=== PATIENT | female | born 1995 | race Caucasian/White ===

== ENCOUNTER 2024-03-02 10:26 | Outpatient (CLI) | payer BC, SELFPAY ==
[2024-03-02 10:59] LABS: Alanine Aminotransferase 12 U/L (6-35); Albumin Level 4.5 g/dL (3.5-5.1); Alkaline Phosphatase 59 U/L (38-126); Anion Gap 6 mmol/L (4-12); Aspartate Amino Transferase 21 U/L (14-36); Bilirubin,Total 0.3 mg/dL (0.2-1.3); Blood Urea Nitrogen 9 mg/dL (7-17); CRP < 0.5 mg/dL (<1.0); Calcium 9.2 mg/dL (8.4-10.2); Carbon Dioxide 30 mmol/L (22-30); Chloride 103 mmol/L (98-107); Estimated Glomerular Filt Rate > 60; Glucose 94 mg/dL (65-110); Potassium 4.3 mmol/L (3.4-5.0); Sodium 139 mmol/L (137-145)
[2024-03-02 11:31] LABS: Iron 64 ug/dL (37-170)
[2024-03-02 11:41] LABS: Percent Iron Saturation 25 % (20-50)
[2024-03-02 12:02] LABS: Folic Acid > 20.0 ng/mL (2.76->20)
[2024-03-02 16:04] LABS: Hepatitis B Surface Antigen Negative (Negative)
[2024-03-02 16:10] LABS: HAV RESULT Negative (Negative); Hepatitis B Core IgM Result Negative (Negative)
[2024-03-02 16:22] LABS: Hepatitis B Surface Anti Res Negative; Hepatitis C Virus Antibody Negative (Negative)
[2024-03-04 01:58] LABS: Hepatitis A Antibody Total REACTIVE (NON-REACTIVE)
[2024-03-05 12:24] LABS: NIL 0.02 IU/mL; Quantiferon TB Plus, 1T NEGATIVE (NEGATIVE)
== END 2024-03-02 10:27 | disposition home or self-care (01) ==
LOC: ANHLAB 10:28
PROVIDERS: PCP Family Medicine; Visit Provider Nurse Practitioner
DX: K50.819 Crohn's disease of both small and large intestine with unspecified complications (principal); K52.9 Noninfective gastroenteritis and colitis, unspecified; R11.0 Nausea; R19.00 Intra-abdominal and pelvic swelling, mass and lump, unspecified site
CPT/HCPCS: 36415; 80053; 80074; 82607; 82746; 83540; 83550; 86140; 86480; 86706; 86708

== ENCOUNTER 2024-03-04 11:40 | Outpatient (CLI) | payer BC, SELFPAY ==
[2024-03-04 13:16] LABS: Erythrocyte Sedimentation Rate 12 mm/hr (0-20)
[2024-03-05 16:13] LABS: Hepatitis B Core Ab Total NON-REACTIVE (NON-REACTIVE)
[2024-03-08 06:48] LABS: Immunoglobulin A 179 mg/dL (47-310); TTG IGA AB <1.0 U/mL
[2024-03-08 10:59] LABS: Vitamin D 1,25 (OH)2 Total 49 pg/mL (18-72); Vitamin D2 1,25 (OH)2 <8 pg/mL; Vitamin D3 1,25 (OH)2 49 pg/mL
[2024-03-10 18:24] LABS: Calprotectin, Stool 323 mcg/g
== END 2024-03-04 11:41 | disposition home or self-care (01) ==
LOC: ANHLAB 11:41
PROVIDERS: PCP Family Medicine; Visit Provider Nurse Practitioner
DX: K50.819 Crohn's disease of both small and large intestine with unspecified complications (principal); K52.9 Noninfective gastroenteritis and colitis, unspecified; R10.9 Unspecified abdominal pain; R11.0 Nausea; R19.00 Intra-abdominal and pelvic swelling, mass and lump, unspecified site
CPT/HCPCS: 36415; 82652; 82728; 82784; 83993; 85652; 86364; 86704; 87045; 87427; 87449

== ENCOUNTER 2024-03-15 08:17 | Outpatient (CLI) | payer BC, SELFPAY ==
--- NOTE | ~2024-03-15 | XR_ITS ---
EXAMINATION: XR UGI w small bowel DATE: 03/15/2024 10:18 INDICATION: Abdominal pain. Crohn disease. TECHNIQUE: The patient drank thick barium, gas-producing crystals, and thin barium. Fluoroscopy of th e esophagus and small bowel was performed. Fluoroscopy exposure time was 1.5 minutes. Radiographs of the abdomen were obtained. The total number of images was 277. COMPARISON: None. FINDINGS: ESOPHAGRAM: There is no mass or stricture of the esophagus. Esophageal motility is normal. There is no hiatal her juan. There was no gastroesophageal reflux with provocative maneuvers. SMALL BOWEL SERIES: The small bowel shows a normal folding pattern. Specifically, the terminal ileum is normal. Transit t julián to the colon was 30 minutes. IMPRESSION: 1. Normal esophagram. 2. Normal small bowel series. Reviewed, dictated and finalized at location A.
== END 2024-03-15 08:18 | disposition home or self-care (01) ==
LOC: ANHIMG 08:19
PROVIDERS: PCP Family Medicine; Visit Provider Nurse Practitioner
DX: K52.9 Noninfective gastroenteritis and colitis, unspecified (principal); R10.9 Unspecified abdominal pain; K56.699 Other intestinal obstruction unspecified as to partial versus complete obstruction
CPT/HCPCS: 74240; 74248

== ENCOUNTER 2024-12-26 11:36 | Outpatient (CLI) | payer BC, SELFPAY ==
[2024-12-26 12:37] LABS: Hematocrit 34.8 % (37.0-47.0); Hemoglobin 11.4 g/dL (12.0-15.0); Mean Corpuscular HGB Conc 32.8 g/dl (32-36); Mean Corpuscular Hemoglobin 29.8 pg (26-34); Mean Corpuscular Volume 91.1 fl (80-100); Mean Platelet Volume 9.7 fl (7.4-10.4); Platelet Count Result 226 k/mm3 (150-375); Red Blood Count 3.82 M/mm3 (4.2-5.4); White Blood Count 6.4 K/mm3 (4.5-10.0)
[2024-12-26 12:44] LABS: Alanine Aminotransferase 20 U/L (6-35); Albumin Level 4.4 g/dL (3.5-5.1); Alkaline Phosphatase 73 U/L (38-126); Anion Gap 6 mmol/L (4-12); Aspartate Amino Transferase 29 U/L (14-36); Bilirubin,Total 0.3 mg/dL (0.2-1.3); Blood Urea Nitrogen 15 mg/dL (7-17); CRP < 0.5 mg/dL (<1.0); Calcium 8.9 mg/dL (8.4-10.2); Carbon Dioxide 29 mmol/L (22-30); Chloride 100 mmol/L (98-107); Estimated Glomerular Filt Rate > 60; Glucose 107 mg/dL (65-110); Potassium 4.1 mmol/L (3.4-5.0); Sodium 135 mmol/L (137-145)
[2024-12-26 12:46] LABS: Iron 60 ug/dL (37-170)
[2024-12-26 12:55] LABS: Percent Iron Saturation 25 % (20-50)
[2024-12-26 13:21] LABS: Hepatitis B Surface Antigen Negative (Negative)
--- OUTSIDE RECORDS SUMMARY | 2024-12-26 13:35 | XMS_ITS | Data Portability ---
Author Organization [facility] JESUSJordan Address [address] [place] [address] Assessment No assessment recorded. Plan of Treatment Reminders Order Date Submit Date Provider Last Modified By Organization Details Last Modified Time Details Appointments None recorded. Lab HbA1c (hemoglob in A1c), blood 2015 016 asavala [facility], [address], [address], [place], [address], 6 13:07:40 glucose, fasting, QN, serum or plasma 2015 016 tdehne [facility], [address], [address], [place], [address], 7 19:47:23 HbA1c (hemoglob in A1c), blood 2014 015 asavala [facility], [address], [address], [place], [address], 5 10:37:26 glucose, fasting, QN, serum or plasma 2014 015 asavala [facility], [address], [place], [address], 5 10:37:26 inflammat ory bowel disease Ab panel, serum 2014 015 THOR [facility], [address], [place], [address], 11:13:26 test, urine 2014 THOR In-Office Order, Internal Use Only DO Not Attach Compendium DO Not Attach Compendium, Do Not Delete/merge, [id number] 17:43:18 H pylori urea breath test, co2 infrared 2014 [facility]OR [facility], [address], [address], [place], [address], 11:13:28 hepatitis C Ab, serum 2014 [facility], [address], [address], [place], [address], 11:13:27 HIV (1+O+2) Ab, serum 2014 [facility]OR [facility], [address], [address], [place], [address], 11:13:26 CMP, serum or plasma 2014 [facility]OR [facility], [address], [address], [place], [address], 11:13:24 CBC w/ auto diff 2014 THOR [facility], [address], [address], [place], [address], 11:13:23 lipid panel, serum 2014 THOR [facility]IL[facility]OMA, [address], [address], [place], [address], 11:13:22 urinalysi s, complete 2014 015 [facility]OR [facility], [address], [address], [place], [address], 5 11:13:25 urinalysi s, dipstick 2014 015 horace In-Office Order, Internal Use Only DO Not Attach Compendium DO Not Attach Compendium, Do Not Delete/merge, [id number] 5 14:30:36 bacterial vaginosis + vaginitis panel, vaginal 2014 015 [facility]OR [facility], [address] [facility] [address], [place], [address], 5 09:52:17 HSV (1+2) DNA, qual, PCR, unspecifi ed specimen 2014 015 [facility], [address], [place], [address], 5 09:52:18 culture, vaginal/r ectal, streptoco ccus group B 2014 015 [facility], [address], [place], [address], 5 09:52:18 test, urine 2014 015 horace In-Office Order, Internal Use Only DO Not Attach Compendium DO Not Attach Compendium, Do Not Delete/merge, [id number] 5 14:30:36 Referral None recorded. Procedures None recorded. Surgeries None recorded. Imaging ultrasoun d, rios er - Pain 2014 015 THOR Not available 5 14:39:49 Medication Orders Nexplanon 68 mg subdermal implant 2014 015 [id number], [address] [facility] [address], [place], [place], [id number], 5 14:59:16 Patient TargetsNo targets recorded. Patient Instructions Encounter Date Encounter Id Patient Instructions Last Modified By Organization Details Last Modified Time 07/19/2015 [id number] abdominal pain: care instructions asavala Not available 07/19/2015 10:37:38 Labs were discussed in detail and clear instructions were given to the patient regarding the plan oajao Not available 07/19/2015 10:22:44 Reason for Referral None Reported. Results Created Date Observation Date Name Description Value Unit Range Abnormal Flag Note LastModifiedBy Organization Detail LastModifiedTime 06/25/20 15 06/25/2015 pregn keith test, urine HCG negati ve Not Available In-Office Order Internal Use Only DO Not Attach Compendium DO Not Attach Compendium, Do Not Delete/merge, [id number] 06/25/2015 15:07:11 02/28/20 15 02/27/2015 pregn keith test, urine HCG negati ve Not Available In-Office Order Internal Use Only DO Not Attach Compendium DO Not Attach Compendium, Do Not Delete/merge, [id number] 02/27/2015 14:26:34 02/28/20 15 02/27/2015 urina lysis , dipst ick Leukocytes Small Not Available In-Offi ce Order Internal Use Only DO Not Attach Compendium DO Not Attach Compendium, Do Not Delete/merge, [id number] 02/27/2015 11:54:42 02/28/20 15 02/27/2015 urina lysis , dipst ick Nitrite negati ve Not Available In-Office Order Internal Use Only DO Not Attach Compendium DO Not Attach Compendium, Do Not Delete/merge, [id number] 02/27/2015 11:54:42 02/28/20 15 02/27/2015 urina lysis , dipst ick Urobilinogen .2 Not Available In-Of fice Order Internal Use Only DO Not Attach Compendium DO Not Attach Compendium, Do Not Delete/merge, [id number] 02/27/2015 11:54:42 02/28/20 15 02/27/2015 urina lysis , dipst ick Protein Negati ve Not Available In-Office Order Internal Use Only DO Not Attach Compendium DO Not Attach Compendium, Do Not Delete/merge, 02/27/2015 11:54:42 02/28/20 15 02/27/2015 urina lysis , dipst ick pH 5.5 Not Available In-Office Order Internal Use Only DO Not Attach Compendium DO Not Attach Compendium, Do Not Delete/merge, 02/27/2015 11:54:42 02/28/20 15 02/27/2015 urina lysis , dipst ick Blood Large Not Available In-Office Order Internal Use Only DO Not Attach Compendium DO Not Attach Compendium, Do Not Delete/merge, 02/27/2015 11:54:42 02/28/20 15 02/27/2015 urina lysis , dipst ick Specific [place] 1.030 Not Available In-Off ice Order Internal Use Only DO Not Attach Compendium DO Not Attach Compendium, Do Not Delete/merge, 02/27/2015 11:54:42 02/28/20 15 02/27/2015 urina lysis , dipst ick Ketone Negati ve Not Available In-Office Order Internal Use Only DO Not Attach Compendium DO Not Attach Compendium, Do Not Delete/merge, 02/27/2015 11:54:42 02/28/20 15 02/27/2015 urina lysis , dipst ick Bilirubin Negati ve Not Available In-Office Order Internal Use Only DO Not Attach Compendium DO Not Attach Compendium, Do Not Delete/merge, 02/27/2015 11:54:42 02/28/20 15 02/27/2015 urina lysis , dipst ick Glucose Negati ve Not Available In-Office Order Internal Use Only DO Not Attach Compendium DO Not Attach Compendium, Do Not Delete/merge, 02/27/2015 11:54:42 02/28/20 15 03/01/2015 bacte rial vagin osis + vagin itis panel , vagin al chlamydia trachomatis, MITCHELL NEGATI VE negati ve Not Available [facility] ([facility]) [address] [facility], [place], [address], 03/02/2015 09:52:17 02/28/20 15 03/01/2015 bacte rial vagin osis + vagin itis panel , vagin al neisseria gonorrhoeae, MITCHELL NEGATI VE negati ve Not Available [facility] ([facility]) [address] [place], [address], 03/02/2015 09:52:17 02/28/20 15 03/02/2015 bacte rial vagin osis + vagin itis panel , vagin al atopobium vaginae HIGH - 2 score abnormal Not Available [facility] ([facility]) [address] [facility], [place], [address], 03/02/2015 09:52:17 02/28/2003/02/2015 bacte rial vagin osis + vagin itis panel , vagin al bvab 2 HIGH - 2 score abnormal Not Available [facility] ([facility]) [address] [place], [address], 03/02/2015 09:52:17 02/28/2003/02/2015 bacte rial vagin osis + vagin itis panel , vagin al megasphaera 1 HIGH - 2 score abnormal CALCU LATE TOTAL SCORE BY GIOVANNY Moran THE 3 INDIV IDUAL BACTE RIAL VAGIN OSIS (BV) MARKE R SCORE S TOGET HER. TOTAL SCORE IS INTER PRETE D FOLLO WS: TOTAL SCORE 0-1: INDIC ATES THE ABSEN CE OF BV. TOTAL SCORE 2: INDET ERMIN ATE FOR BV. ADDIT IONAL CLINI LATOYA DATA SHOUL D BE EVALU ATED TO ESTAB GURWINDER A DIAGN OSIS. TOTAL SCORE 3-6: INDIC ATES THE PRESE NCE OF BV. THIS TEST WAS DEVEL OPED AND ITS PERFO RMANC E JEAN CTERI STICS DETER MINED BY [facility]. IT HAS NOT BEEN CLEAR ED OR APPRO HERON BY THE FOOD AND DRUG ADMIN ISTRA TION. THE FDA HAS DETER MINED THAT SUCH CLEAR ANCE OR APPRO JONI IS NOT NECES PARDEEP. Not Available [facility] ([facility]) [address] [place], [address], 03/02/2015 09:52:17 02/28/2003/02/2015 bacte rial vagin osis + vagin itis panel , vagin al trang albicans, MITCHELL NEGATI VE negati ve Not Available [facility] ([facility]) [address] [place], [address], 03/02/2015 09:52:17 02/28/20 15 03/02/2015 bacte rial vagin osis + vagin itis panel , vagin al trang glabrata, MITCHELL NEGATI VE negati ve THIS TEST WAS DEVEL OPED AND ITS PERFO RMANC E JEAN CTERI STICS DETER MINED BY [facility]. IT HAS NOT BEEN CLEAR ED OR APPRO HERON BY THE FOOD AND DRUG ADMIN ISTRA TION. THE FDA HAS DETER MINED THAT SUCH CLEAR ANCE OR APPRO JONI IS NOT NECES PARDEEP. Not Available [facility] ([facility]) [address] [place], [address], 03/02/2015 09:52:17 02/28/2003/02/2015 bacte rial vagin osis + vagin itis panel , vagin al trich vag by MITCHELL NEGATI VE negati ve Not Available [facility] ([facility]) [address] [place], [address], 03/02/2015 09:52:17 02/28/2003/01/2015 HSV (1+2) DNA, qual, PCR, unspe cifie d speci men hsv 1 MITCHELL NEGATI VE negati ve Not Available [facility] ([facility]) [address] [place], [address], 03/02/2015 09:52:18 02/28/2003/01/2015 HSV (1+2) DNA, qual, PCR, unspe cifie d speci men hsv 2 MITCHELL NEGATI VE negati ve Not Available [facility] ([facility]) [address] [place], [address], 03/02/2015 09:52:18 02/28/20 15 03/01/2015 cultu re, vagin al/re ctal, strep tococ cus group B strep gp B MITCHELL NEGATI VE negati ve PENIC ILLIN G, AMPIC ILLIN , OR CEFAZ PRADEEP ARE INDIC ATED FOR INTRA PARTU M PROPH YLAXI S OF PERIN ATAL GROUP B STREP (GBS) COLON IZATI ON. REFLE X SUSCE PTIBI LITY TESTI NG SHOUL D BE PERFO RMED PRIOR TO USE OF CLIND AMYCI N ONLY ON GBS ISOLA MARITZA FROM PENIC ILLIN -[facility] RGIC WOMEN WHO ARE CONSI DERED A HIGH RISK FOR ANAPH YLAXI S. TREAT MENT WITH VANCO MYCIN WITHO UT ADDIT IONAL TESTI NG IS WARRA NTED IF RESIS TANCE TO CLIND AMYCI N IS NOTED . (CDC GUIDE LINES , MMWR, 2009) Not Available [facility] ([facility]) [address] [place], [address], 03/02/2015 09:52:18 06/25/20 15 06/26/2015 lipid panel , serum cholesterol, total 145 mg/dL 100-18 9 EFF ECTIV E OCTOB ER 2014 THE REFER ENCE INTER JONI FOR LUIS FERNANDO STERO L, TOTAL WILL BE CERRATO ING TO: 0 - 19 YEARS 100 - 169 >19 YEARS 100 - 199 Not Available [facility] ([facility]) [address] [place], [address], 07/02/2015 11:13:22 06/25/20 15 06/26/2015 lipid panel , serum triglyceride s 87 mg/dL 0-114 EFF ECTIV E OCTOB ER 2014 THE REFER ENCE INTER JONI FOR TRIGL YCERI ROSINA WILL BE CERRATO ING TO: 0 - 9 YEARS 0 - 74 10 - 19 YEARS 0 - 89 >19 YEARS 0 - 149 Not Available [facility] ([facility]) [address] [place], [address], 07/02/2015 11:13:22 06/25/20 15 06/26/2015 lipid panel , serum HDL cholesterol 35 mg/dL >39 below low normal ACCOR DING TO ATP-I II GUIDE LINES , HDL-C >59 MG/DL IS CONSI DERED A NEGAT ESTRELLA RISK FACTO R FOR CHD. Not Available [facility] ([facility]) [address] [facility], [place], [address], 07/02/2015 11:13:22 06/25/20 15 06/26/2015 lipid panel , serum VLDL cholesterol latoya 17 mg/dL 5-40 Not Available [facility] ([facility]) [address] [facility], [place], [address], 07/02/2015 11:13:22 06/25/20 15 06/26/2015 lipid panel , serum LDL cholesterol calc 93 mg/dL 0-119 EFF ECTIV E OCTOB ER 2014 THE REFER ENCE INTER JONI FOR LDL LUIS FERNANDO STERO L CALC WILL BE CERRATO ING TO: 0 - 19 YEARS 0 - 109 >19 YEARS 0 - 99 Not Available [facility] ([facility]) [address] [facility], [place], [address], 07/02/2015 11:13:22 06/25/20 15 06/26/2015 lipid panel , serum comment: PLACEMENT SPECIALIST Not Available [facility] ([facility]) [address] [facility], [place], [address], 07/02/2015 11:13:22 06/25/20 15 06/26/2015 lipid panel , serum LDL/HDL ratio 2.7 ratio _unit s 0.0-3. 2 LDL/H DL RATIO MEN WOMEN 1/2 AVG.R ISK 1.0 1.5 AVG.R ISK 3.6 3.2 2X AVG.R ISK 6.2 5.0 3X AVG.R ISK 8.0 6.1 Not Available [facility] ([facility]) [address] [facility], [place], [address], 07/02/2015 11:13:22 06/25/20 15 06/26/2015 CBC w/ auto diff WBC 6.9 x10e3 /uL 3.4-10 .8 Not Available [facility] ([facility]) [address] [place], [address], 07/02/2015 11:13:23 06/25/20 15 06/26/2015 CBC w/ auto diff RBC 4.56 x10e6 /uL 3.77-5 .28 Not Available [facility] ([facility]) [address] [place], [address], 07/02/2015 11:13:23 06/25/20 15 06/26/2015 CBC w/ auto diff hemoglobin 12.6 g/dL 11.1-1 5.9 Not Available [facility] ([facility]) [address] [facility], [place], [address], 07/02/2015 11:13:23 06/25/20 15 06/26/2015 CBC w/ auto diff hematocrit 37.7 % 34.0-4 6.6 Not Available [facility] ([facility]) [address] [place], [address], 07/02/2015 11:13:23 06/25/20 15 06/26/2015 CBC w/ auto diff MCV 83 fL 79-97 Not Available [facility] ([facility]) [address] [facility], [place], [address], 07/02/2015 11:13:23 06/25/20 15 06/26/2015 CBC w/ auto diff MCH 27.6 pg 26.6-3 3.0 Not Available [facility] ([facility]) [address] [place], [address], 07/02/2015 11:13:23 06/25/20 15 06/26/2015 CBC w/ auto diff MCHC 33.4 g/dL 31.5-3 5.7 Not Available [facility] ([facility]) [facility] [place], [address], 07/02/2015 11:13:23 06/25/20 15 06/26/2015 CBC w/ auto diff RDW 13.6 % 12.3-1 5.4 Not Available [facility] ([facility]) [address] [place], [address], 07/02/2015 11:13:23 06/25/20 15 06/26/2015 CBC w/ auto diff platelets 275 x10e3 /uL 150-37 9 Not Available [facility] ([facility]) [address] [facility], [place], [address], 07/02/2015 11:13:23 06/25/20 15 06/26/2015 CBC w/ auto diff neutrophils 68 % Not Available [facility] ([facility]) [address] [place] [address], [address], 07/02/2015 11:13:23 06/25/20 15 06/26/2015 CBC w/ auto diff lymphs 15 % Not Available [facility] ([facility]) [address] [place] [address], [address], 07/02/2015 11:13:23 06/25/20 15 06/26/2015 CBC w/ auto diff monocytes 13 % Not Available [facility] ([facility]) [address] [place] [address], [address], 07/02/2015 11:13:23 06/25/20 15 06/26/2015 CBC w/ auto diff eos 4 % Not Available [facility] ([facility]) [address] [place] [address], [address], 07/02/2015 11:13:23 06/25/20 15 06/26/2015 CBC w/ auto diff basos 0 % Not Available [facility] ([facility]) [address] [place] [address], [address], 07/02/2015 11:13:23 06/25/20 15 06/26/2015 CBC w/ auto diff immature cells PLACEMENT SPECIALIST Not Available [facility] ([facility]) [address] [place], [address], 07/02/2015 11:13:23 06/25/20 15 06/26/2015 CBC w/ auto diff neutrophils (absolute) 4.6 x10e3 /uL 1.4-7. 0 Not Available [facility] ([facility]) [address] [place], [address], 07/02/2015 11:13:23 06/25/20 15 06/26/2015 CBC w/ auto diff lymphs (absolute) 1.0 x10e3 /uL 0.7-3. 1 Not Available [facility] ([facility]) [address] [place], [address], 07/02/2015 11:13:23 06/25/20 15 06/26/2015 CBC w/ auto diff monocytes(ab solute) 0.9 x10e3 /uL 0.1-0. 9 Not Available [facility] ([facility]) [address] [place], [address], 07/02/2015 11:13:23 06/25/20 15 06/26/2015 CBC w/ auto diff eos (absolute) 0.3 x10e3 /uL 0.0-0. 4 Not Available [facility] ([facility]) [address] [place], [address], 07/02/2015 11:13:23 06/25/20 15 06/26/2015 CBC w/ auto diff baso (absolute) 0.0 x10e3 /uL 0.0-0. 2 Not Available [facility] ([facility]) [address] [place], [address], 07/02/2015 11:13:23 06/25/20 15 06/26/2015 CBC w/ auto diff immature granulocytes 0 % Not Available [facility] ([facility]) [address] [place], [address], 07/02/2015 11:13:23 06/25/20 15 06/26/2015 CBC w/ auto diff immature grans (abs) 0.0 x10e3 /uL 0.0-0. 1 Not Available [facility] ([facility]) [address] [place], [address], 07/02/2015 11:13:23 06/25/20 15 06/26/2015 CBC w/ auto diff NRBC PLACEMENT SPECIALIST Not Available [facility] ([facility]) [address] [place], [address], 07/02/2015 11:13:23 06/25/20 15 06/26/2015 CBC w/ auto diff hematology comments: PLACEMENT SPECIALIST Not Available [facility] ([facility]) [address] [place], [address], 07/02/2015 11:13:23 06/25/20 15 06/26/2015 CMP, serum or plasm a glucose, serum 103 mg/dL 65-99 above high normal Not Available [facility] ([facility]) [address] [place], [address], 07/02/2015 11:13:24 06/25/20 15 06/26/2015 CMP, serum or plasm a BUN 11 mg/dL 6-20 Not Available [facility] ([facility]) [address] [place], [address], 07/02/2015 11:13:24 06/25/20 15 06/26/2015 CMP, serum or plasm a creatinine, serum 0.76 mg/dL 0.57-1 .00 Not Available [facility] ([facility]) [address] [place], [address], 07/02/2015 11:13:24 06/25/20 15 06/26/2015 CMP, serum or plasm a eGFR if nonafricn AM 113 mL/mi n/1.7 3 >59 Not Available [facility] ([facility]) [address] [place], [address], 07/02/2015 11:13:24 06/25/20 15 06/26/2015 CMP, serum or plasm a eGFR if africn AM 131 mL/mi n/1.7 3 >59 Not Available [facility] ([facility]) [address] [place], [address], 07/02/2015 11:13:24 06/25/20 15 06/26/2015 CMP, serum or plasm a BUN/creatini ne ratio 14 8-20 Not Available [facility] ([facility]) [address] [place], [address], 07/02/2015 11:13:24 06/25/20 15 06/26/2015 CMP, serum or plasm a sodium, serum 140 mmol/ L 134-14 4 Not Available [facility] ([facility]) [address] [place], [address], 07/02/2015 11:13:24 06/25/20 15 06/26/2015 CMP, serum or plasm a potassium, serum 4.3 mmol/ L 3.5-5. 2 Not Available [facility] ([facility]) [address] [place] [address], [address], 07/02/2015 11:13:24 06/25/20 15 06/26/2015 CMP, serum or plasm a chloride, serum 101 mmol/ L 97-108 Not Available [facility] ([facility]) [address] [place], [address], 07/02/2015 11:13:24 06/25/20 15 06/26/2015 CMP, serum or plasm a carbon dioxide, total 23 mmol/ L 18-29 Not Available [facility] ([facility]) [address] [place] [address], [address], 07/02/2015 11:13:24 06/25/20 15 06/26/2015 CMP, serum or plasm a calcium, serum 9.0 mg/dL 8.7-10 .2 Not Available [facility] ([facility]) [address] [facility] [place], [address], 07/02/2015 11:13:24 06/25/20 15 06/26/2015 CMP, serum or plasm a protein, total, serum 7.0 g/dL 6.0-8. 5 Not Available [facility] ([facility]) [address] [facility] [place], [address], 07/02/2015 11:13:24 06/25/20 15 06/26/2015 CMP, serum or plasm a albumin, serum 4.3 g/dL 3.5-5. 5 Not Available [facility] ([facility]) [address] [facility], [place], [address], 07/02/2015 11:13:24 06/25/20 15 06/26/2015 CMP, serum or plasm a globulin, total 2.7 g/dL 1.5-4. 5 Not Available [facility] ([facility]) [address] [facility], [place], [address], 07/02/2015 11:13:24 06/25/20 15 06/26/2015 CMP, serum or plasm a A/G ratio 1.6 1.1-2. 5 Not Available [facility] ([facility]) [address] [facility] [place], [address], 07/02/2015 11:13:24 06/25/20 15 06/26/2015 CMP, serum or plasm a bilirubin, total 0.2 mg/dL 0.0-1. 2 Not Available [facility] ([facility]) [address] [facility] [place], [address], 07/02/2015 11:13:24 06/25/20 15 06/26/2015 CMP, serum or plasm a alkaline phosphatase, S 62 IU/L 39-117 Not Available [facility] ([facility]) [address] [place], [address], 07/02/2015 11:13:24 06/25/20 15 06/26/2015 CMP, serum or plasm a AST (SGOT) 14 IU/L 0-40 Not Available [facility] ([facility]) [address] [facility] [place], [address], 07/02/2015 11:13:24 06/25/20 15 06/26/2015 CMP, serum or plasm a ALT (SGPT) 7 IU/L 0-32 Not Available [facility] ([facility]) [address] [facility] [place], [address], 07/02/2015 11:13:24 06/25/20 15 06/26/2015 urina lysis , compl ete specific gravity 1.022 1.005- 1.030 Not Available [facility] ([facility]) [address] [place], [address], 07/02/2015 11:13:25 06/25/20 15 06/26/2015 urina lysis , compl ete pH 6.0 5.0-7. 5 Not Available [facility] ([facility]) [address] [facility] [place], [address], 07/02/2015 11:13:25 06/25/20 15 06/26/2015 urina lysis , compl ete urine-color YELLOW yellow Not Available [facility] ([facility]) [address] [place], [address], 07/02/2015 11:13:25 06/25/20 15 06/26/2015 urina lysis , compl ete appearance CLOUDY clear abnormal Not Available [facility] ([facility]) [address] [place], [address], 07/02/2015 11:13:25 06/25/20 15 06/26/2015 urina lysis , compl ete WBC esterase 1+ negati ve abnormal Not Available [facility] ([facility]) [address] [place], [address], 07/02/2015 11:13:25 06/25/20 15 06/26/2015 urina lysis , compl ete protein TRACE negati ve/tra ce Not Available [facility] ([facility]) [address] [place], [address], 07/02/2015 11:13:25 06/25/20 15 06/26/2015 urina lysis , compl ete glucose NEGATI VE negati ve Not Available [facility] ([facility]) [address] [place], [address], 07/02/2015 11:13:25 06/25/20 15 06/26/2015 urina lysis , compl ete glucose reflex PLACEMENT SPECIALIST Not Available [facility] ([facility]) [address] [place], [address], 07/02/2015 11:13:25 06/25/20 15 06/26/2015 urina lysis , compl ete ketones NEGATI VE negati ve Not Available [facility] ([facility]) [address] [place], [address], 07/02/2015 11:13:25 06/25/20 15 06/26/2015 urina lysis , compl ete occult blood NEGATI VE negati ve Not Available [facility] ([facility]) [address] [place], [address], 07/02/2015 11:13:25 06/25/20 15 06/26/2015 urina lysis , compl ete bilirubin NEGATI VE negati ve Not Available [facility] ([facility]) [address] [place], [address], 07/02/2015 11:13:25 06/25/20 15 06/26/2015 urina lysis , compl ete urobilinogen ,semi-qn 0.2 mg/dL 0.0-1. 9 Not Available [facility] ([facility]) [address] [place], [address], 07/02/2015 11:13:25 06/25/20 15 06/26/2015 urina lysis , compl ete nitrite, urine NEGATI VE negati ve Not Available [facility] ([facility]) [address] [place], [address], 07/02/2015 11:13:25 06/25/20 15 06/26/2015 urina lysis , compl ete microscopic examination SEE BELOW: MICRO SCOPI C WAS INDIC ATED AND WAS PERFO RMED. Not Available [facility] ([facility]) [address] [place], [address], 07/02/2015 11:13:25 06/25/20 15 06/26/2015 urina lysis , compl ete WBC 6-10 /hpf 0 - 5 abnormal Not Available [facility] ([facility]) [address] [place], [address], 07/02/2015 11:13:25 06/25/20 15 06/26/2015 urina lysis , compl ete RBC 0-2 /hpf 0 - 2 Not Available [facility] ([facility]) [address] [facility], [place], [address], 07/02/2015 11:13:25 06/25/20 15 06/26/2015 urina lysis , compl ete epithelial cells (non renal) >10 /hpf 0 - 10 abnormal Not Available [facility] ([facility]) [address] [place], [address], 07/02/2015 11:13:25 06/25/20 15 06/26/2015 urina lysis , compl ete epithelial cells (renal) PLACEMENT SPECIALIST Not Available [facility] ([facility]) [address] [place], [address], 07/02/2015 11:13:25 06/25/20 15 06/26/2015 urina lysis , compl ete casts PLACEMENT SPECIALIST Not Available [facility] ([facility]) [address] [place], [address], 07/02/2015 11:13:25 06/25/20 15 06/26/2015 urina lysis , compl ete cast type PLACEMENT SPECIALIST Not Available [facility] ([facility]) [address] [place], [address], 07/02/2015 11:13:25 06/25/20 15 06/26/2015 urina lysis , compl ete crystals PRESEN T n/a abnormal Not Available [facility] ([facility]) [address] [place], [address], 07/02/2015 11:13:25 06/25/20 15 06/26/2015 urina lysis , compl ete crystal type AMORPH OUS SEDIME NT n/a Not Available [facility] ([facility]) [address] [place], [address], 07/02/2015 11:13:25 06/25/20 15 06/26/2015 urina lysis , compl ete mucus threads PRESEN T not estab. Not Available [facility] ([facility]) [address] [place], [address], 07/02/2015 11:13:25 06/25/20 15 06/26/2015 urina lysis , compl ete bacteria NONE SEEN none seen/f ew Not Available [facility] ([facility]) [address] [place], [address], 07/02/2015 11:13:25 06/25/20 15 06/26/2015 urina lysis , compl ete yeast PLACEMENT SPECIALIST Not Available [facility] ([facility]) [address] [place], [address], 07/02/2015 11:13:25 06/25/20 15 06/26/2015 urina lysis , compl ete trichomonas PLACEMENT SPECIALIST Not Available [facility] ([facility]) [address] [place], [address], 07/02/2015 11:13:25 06/25/20 15 06/26/2015 urina lysis , compl ete comment PLACEMENT SPECIALIST Not Available [facility] ([facility]) [address] [place] [address], [place], [address], 07/02/2015 11:13:25 06/25/20 15 06/26/2015 HIV (1+O+ 2) Ab, serum HIV 1/O/2 abs-index value <1.00 <1.00 INDEX VALUE : SPECI MEN REACT IVITY RELAT ESTRELLA TO THE NEGAT ESTRELLA CUTOF F. Not Available [facility] ([facility]) [address] [place] [address], [address], 07/02/2015 11:13:25 06/25/20 15 06/26/2015 HIV (1+O+ 2) Ab, serum HIV 1/O/2 abs, qual NON REACTI VE non reacti ve Not Available [facility] ([facility]) [address] [facility], [place], [address], 07/02/2015 11:13:25 06/25/20 15 06/27/2015 infla mmato ry bowel disea se Ab panel , serum saccharomyce s cerevisiae, IgG 30.8 units 0.0-24 .9 above high normal NEGAT ESTRELLA <20.0 EQUIV OCAL 20.1 - 24.9 POSIT ESTRELLA >OR= 25.0 Not Available [facility] ([facility]) [address] [place], [address], 07/02/2015 11:13:26 06/25/20 15 06/27/2015 infla mmato ry bowel disea se Ab panel , serum saccharomyce s cerevisiae, IgA 48.8 units 0.0-24 .9 above high normal NEGAT ESTRELLA <20.0 EQUIV OCAL 20.1 - 24.9 POSIT ESTRELLA >OR= 25.0 IGA AND IGG ANTIB DELORES TESTI NG FOR S. CEREV ISIAE IS USEFU L ADJUN CT TESTI NG FOR DIFFE RENTI ATING CROHN 'S DISEA SE AND ULCER ATIVE COLIT IS. CLOSE TO 80% OF CROHN 'S DISEA SE PATIE NTS ARE POSIT ESTRELLA FOR EITHE R IGA OR IGG. IN ULCER ATIVE COLIT IS, LESS THAN 15% ARE POSIT ESTRELLA FOR IGG AND LESS THAN 2% ARE POSIT ESTRELLA FOR IGA. FEWER THAN 5% ARE POSIT ESTRELLA FOR EITHE R IGG OR IGA ANTIB DELORES, AND NO HEALT HY CONTR OLS HAD ANTIB DELORES FOR BOTH. Not Available [facility] ([facility]) [address] [facility], [place], [address], 07/02/2015 11:13:26 06/25/20 15 06/27/2015 infla mmato ry bowel disea se Ab panel , serum atypical panca 1:640 titer neg:<1 :20 above high normal THE ATYPI LATOYA PANCA CITLALY RN HAS BEEN OBSER HERON IN A SIGNI FICAN T PERCE NTAGE OF PATIE NTS WITH ULCER ATIVE COLIT IS, PRIMA RY SCLER OSING CHOLA NGITI S AND AUTOI MMUNE HEPAT ITIS. ASCA+ /PANC A- SUGGE STIVE OF CROHN 'S DISEA SE ASCA- /PANC A+ SUGGE STIVE OF ULCER ATIVE COLIT IS Not Available [facility] ([facility]) [address] [facility], [place], [address], 07/02/2015 11:13:26 06/25/20 15 06/25/2015 hepat itis C Ab, serum PCR amplificatio n + detection COMMEN T PERFO RMED Not Available [facility] ([facility]) [address] [facility], [place], [address], 07/02/2015 11:13:27 06/25/20 15 07/02/2015 hepat itis C Ab, serum ngi HCV ultraqual COMMEN T NEGAT ESTRELLA: HCV RNA NOT DETEC ANTONIO QUALI TATIV E ONLY. PCR ASSAY PERFO RMED USING NATIO NAL JOHN ICS INSTI TUTE' S VALID ATED, PROPR IETAR Y METHO DOLOG Y. Not Available [facility] ([facility]) [address] [facility], [place], [address], 07/02/2015 11:13:27 06/25/20 15 06/27/2015 H pylor i urea breat h test, co2 infra red H. pylori breath test NEGATI VE negati ve Not Available [facility] ([facility]) [address] [facility], [place], [address], 07/02/2015 11:13:28 07/11/20 15 07/11/2015 ultra sound , gallb ladde r No observ ation record ed. [facility] [address] [place], [address], 07/19/2015 10:17:22 12/19/19 16 12/13/2015 MRI, abdom en No observ ation record ed. oao Not Available 2015 13:13:30 Result Notes None recorded. Problems Name Problem SNOMED Code Status Onset Date Resolution Date Notes Provider Name and Address Organization Details Recorded Time Bacterial vaginosis 509602789 Active Dixon Tirado triny, [place] - [facility] 5 10:04:44 Abdominal pain 97554825 Active Kitty Baez MD Attn: Harinder moran,[address] [place], [address], [place] - [facility] 5 10:22:44 Acne 33787713 Active Kitty Baez MD Attn: Harinder moran,[address] [place], [address], [place] - [facility] 5 15:13:31 Impaired fasting glycemia 721194637 Active Kitty Baez MD Attn: Harinder moran,[address] [place], [address], [place] [facility] 6 12:53:49 Crohn's disease 44744700 Active Kitty Baez MD Attn: Harinder moran,[address] [place], [address], [place] - [facility] 6 12:53:49 Notes:Some problems listed i n Documents: #[id number], #[id number], #[id number], #[id number] could not be added to this patient's chart. Please review these documents and add these problems to the patient's chart manually as needed. Problem Notes None recorded. Procedures Surgical History Date Name Laterality Status Provider Name and Address Organization Details Recorded Time 4 colonoscopy completed Kitty Baez MD Attn: Accounting,[address] [facility], [place], [address], [facility] - [facility] 01/27/2024 12:30:57 1 Tonsillectomy completed Ava Reyes [place] - [facility] 02/27/2015 11:34:19 Imaging Results Imaging Date Name Status LastModified by Organiz ation Details LastModified Time 07/11/2015 ultrasound, gallbladder completed [facility] [address] [place], [address], 07/19/2015 10:17:22 12/13/2015 MRI, abdomen completed [facility] Information not available 12/19/2015 13:13:30 Procedure Notes None recorded. Medical Equipment None Reported. Allergies Allergen ID Allergen Name Allergen Category Reaction Reaction Severity Criticality Documentation Date Start Date Code Code System Note Provider Name and Address Organization Details Recorded Time 10573 Substance with sulfonami de structure and antibacte rial mechanism of action (substanc e) medicatio n hives moderate Not available 02/27/2015 [id number] 8003 SNOMED Not Available Not Available Not Available Medications Name Sig Start Date Stop Date Status Note LastModified by Organization Details LastModified Time prednisone 20 mg tablet active Not Available Not Available Not Available Flagyl 500 mg tablet Take 1 tablet twice a day by oral route. 06/25 completed Not Available Not Available Not Available omeprazole 20 mg capsule,del ayed release active Not Available Not Available Not Available dicyclomine 10 mg capsule active Not Available Not Available Not Available ibuprofen active Not Available Not April ilable Not Available Acidophilus active Not Available Not A vailable Not Available Apriso 0.375 gram capsule,ext ended release active Not Available Not Available Not Available Nexplanon 68 mg subdermal implant Inject 1 implant by subcutane ous route. 06/25 completed Not Available Not Available Not Available Vitals Date Recorded Body height Body mass index (BMI) Body weight Systolic blood pressure Diastolic blood pressure Provider Name and Address Organization Details Last Updated DateTime 02/27/2015 160.02 cm 23 kg/m2 41518.00 81 g 104 mm[Hg] 70 mm[Hg] Ava Reyes MA [facility] 5 11:54:42 Date Recorded Respiratory rate Body weight Body height Body temperature Heart rate Body mass index (BMI) Systolic blood pressure Diastolic blood pressure Provider Name and Address Organization Details Last Updated DateTime 5 20 /min 79541.3 0729 g 161.29 cm 98.4 [degF] 80 /min 20.4 kg/m2 104 mm[Hg] 68 mm[Hg] December LAURIE Peterson [facility] 5 14:38:34 Date Recorded Respiratory rate Body weight Body height Body temperature Heart rate Body mass index (BMI) Systolic blood pressure Diastolic blood pressure Provider Name and Address Organization Details Last Updated DateTime 5 18 /min 79415.6 7677 g 161.29 cm 98 [degF] 74 /min 21.1 kg/m2 108 mm[Hg] 78 mm[Hg] December LAURIE Peterson [facility] 5 10:03:05 Date Recorded Body weight Body mass index (BMI) Respiratory rate Body temperature Heart rate Body height Systolic blood pressure Diastolic blood pressure Provider Name and Address Organization Details Last Updated DateTime 6 49994.6 7677 g 21.1 kg/m2 20 /min 97.6 [degF] 80 /min 161.29 cm 104 mm[Hg] 72 mm[Hg] December LAURIE Peterson [facility] 6 12:04:39 Social History Question Answer Notes LastModified by Organizat ion Details LastModified Time Tobacco Smoking Status Never Smoker Ava Reyes MA [facility], [facility] 02/27/2015 11:51:37 Do You Have An Advance Directive? No [email or web address] Information not available 02/27/2015 What Is Your Level Of Alcohol Consumption? Occasional [email or web address] Information not available 02/27/2015 Is Blood Transfusion Acceptable In An Emergency? Yes Information not available 02/27/2015 What Is Your Level Of Caffeine Consumption? Occasional Information not available 02/27/2015 How Much Tobacco Do You Chew? None [email or web address] Information not available 02/27/2015 Are You Currently Employed? Yes [email or web address] Information not available 02/27/2015 What Type Of Diet Are You Following? REGULAR [email or web address] Information not available 02/27/2015 Education 12 Information no t available 02/27/2015 What Is Your Occupation? [employer] Information not available 02/27/2015 Are There Any Guns Present In Your Home? No Information not available 06/25/2015 Hard Of Hearing Or Deaf In One Or Both Ears? No Information not available 06/25/2015 Legally Blind In One Or Both Eyes? No Information not available 06/25/2015 Live Alone Or With Others? With Others [email or web address] Information not available 02/27/2015 Preferred Name Dede [email or web address] Informatio n not available 02/27/2015 Sex Assigned At Female [email or web address] Information not available 02/27/2015 In School? No Information no t available 02/27/2015 Highest Grade Completed 12 Some College [email or web address] Information not available 02/27/2015 Lives With Parents [email or web address] Information no t available 02/27/2015 Interests/Hobbi es Explore Outdoors, Hiking, Music Festivals Etc [email or web address] Information not available 02/27/2015 Life Going Well In General Yes [email or web address] Information not available 02/27/2015 Needs Help With Counseling/issu es/referrals No Information not available 02/27/2015 # Alcohol Drinks Per Week 4 [email or web address] Information not available 02/27/2015 Sexual Attraction Opposite Sex Information not available 02/27/2015 Have You Ever Had Sex? Yes [email or web address] Information not available 02/27/2015 # Sex Partners Had 10 [email or web address] Information not available 02/27/2015 Teen No [email or web address] Information no t available 02/27/2015 Parents Aware Of Sexual Activity? No [email or web address] Information not available 02/27/2015 Parents Aware Coming To Clinic? Yes [email or web address] Information not available 02/27/2015 Can Talk To Parents About Personal Things In Life? Yes [email or web address] Information not available 02/27/2015 Have You Ever Had A Pap Smear? No Information not available 02/27/2015 Current Gender Identity Female [email or web address] Information not available 02/27/2015 Marital Status Single [email or web address] Informatio n not available 02/27/2015 How Many Children Do You Have? 0 Information not available 02/27/2015 Performs Monthly Self-breast Exam? No [email or web address] Information not available 02/27/2015 Do You Use Protection During Sex? Usually [email or web address] Information not available 02/27/2015 What Is Your Relationship Status? Single [email or web address] Information not available 02/27/2015 Seat Belts Used Routinely Yes Information not available 02/27/2015 Are You Sexually Active? Yes [email or web address] Information not available 02/27/2015 Smoke Alarm In Home Yes Information not available 06/25/2015 How Much Tobacco Do You Smoke? No Information not available 06/25/2015 General Stress Level Low [email or web address] Information not available 02/27/2015 Do You Use Sunscreen Routinely? Yes [email or web address] Information not available 02/27/2015 Sex: Unknown Functional Status Question Answer Note LastModified by Organizat ion Details LastModified Time Are you able to care for yourself? Yes Information not available 06/25/2015 What is your exercise level? Occasional [email or web address] Information not available 02/27/2015 Mental Status None recorded. Family History Relationship Description Onset Age of this Age Resolved Age Notes LastModified by Organization Details LastModified Time Father Bipolar disorder [email or web address] Not available 02/27 14:24:19 Maternal Grandfather Diabetes mellitus [email or web address] Not available 02/27 14:24:19 Brother Crohn's disease [email or web address] Not available 02/27 14:24:19 Medical History Condition Response Coronary Artery Disease N Kidney Cyst N Blood Diseases N Hyperthyroidism N Blood disorders N Blood Transfusion N MRSA N Emphysema N Depression N COPD N Blood Clots N Pneumonia N Premature N Peripheral Arterial Disease N Edema N TIA N Headaches/Migraines Y Anxiety Disorder N Obesity N Polyps N Infertility N Acid Reflux (GERD) N Hematuria N Stroke N Neck Injury N Polio N Hospital Admission other than N Neurologic Disorder N Other Sleep Disorders N Rheumatoid Arthritis N Fibromyalgia N Abdominal Aortic Aneurysm Repair N Kidney Disease N Heart Conditions N Heart Disease/Heart Problems N Hospitalizations N Brain Tumors N Acne Y Skin Problems N Eating Disorder N Meningitis N Constipation N Tuberculosis N Cerebral Palsy N Myocardial Infarction N Asthma N Substance Abuse N Peripheral Vascular Disease N Vertigo N Sleep Disorder Y Cirrhosis N Pulmonary Embolism N Chicken Pox N Hematologic Disease N Flomax Use Past or Present N Anxiety/Depression N Thyroid Disease N Colon Cancer N Lung Disease N Glaucoma N Developmental or Behavioral Disorders N Bipolar N Pacemaker N Diverticulitis/Diverticulosis N Orthopedic Problems N Anesthesia Complications N Orthotics N Head Injury/Concussion N Congenital Anomalies N Edwards Bite N Chronic Kidney Disease N Endometriosis N Liver Disease N Schizophrenia N Dialysis N Speech Delay N Chronic Obstructive Pulmonary Disease N Parkinson's Disease N Thyroid Problems N GI Problems Y Developmental Delay N Anemia N Multiple Sclerosis N Immune System Disorder N Colon Polyps N Heart Attack (PR) N Diabetes N Cardiomyopathy N Blood Transfusions N Heart Problems/Murmur N Eye Trauma N Congestive Heart Failure (CHF) N Valvular Heart Disease N Hyperlipidemia N Double Vision N Abuse/Domestic Violence N Hepatitis B N Lupus N Epilepsy/Seizures N Reflux/GERD N Aneurysm N Heart Disease N Bronchitis N Pre-Eclampsia N Hypertension N Heart Failure N Other N Gout N High Blood Pressure N Atrial Fibrillation N Kidney Stones N Head Trauma/Injury N Congenital Heart Disease N Spine Problems N Gastrointestinal Disease N Lung Mass N Sinusitis N Obstructive Sleep Apnea N Muscle, Joint, or Bone Problems N Autoimmune disease N Vision or Eye Problems Y Arthritis N Blood Clot N Cancer N Seasonal allergies N Leg or Foot Ulcers N Raynaud's Disease N Aortic Aneurysm N Arrhythmia N Headaches Y Heart Problems N Ambloypia N Ear or Hearing Problems N Hyperparathyroidism N Migraines N Artificial Joints N Kidney or Bladder Problems N NSAID Use N Encephalitis N PTSD N Ulcers N Prostate Hypertrophy N Bleeding Disorder N AIDS/HIV N Urinary Tract Infection N Back Problems N Allergies N Atrial Flutter N GERD/Reflux N Hepatitis N Autism Spectrum Disorder (ASD) N Breast Cancer N Hernia N Hypothyroidism N Breast Problem N Genitourinary Disease N Deep Vein Thrombosis N Varicose Veins N Cystic Fibrosis N Hearing Loss N Developmental Problems N Carotid Disease N Vitamin D Deficiency N ADHD N Bladder or Kidney Problems N High Cholesterol N [place] N Valvular Abnormalities N Psychiatric/Mental Health Condition N Organ Transplant N Foot Deformity N Allergies/Hayfever N Dyslipidemia N Hyponatremia N Diabetic Eye Disease N Osteoporosis/Osteopenia N Back Pain N Proteinuria N Mental Illness N Neurological Problems N Ovarian Cancer N Bedwetting N Seizures/Epilepsy N Kidney Failure N Ocular trauma N Diverticulitis N Dementia N Sleep Apnea N Mental Problems N Warfarin Management N Osteoporosis N Gynecological History Statement/Question Response Abnormal Pap Flow Light STIs/STDs N HPV Vaccine Y Duration of Flow (days) 7 Age at Menarche 12 Current Control Method Condoms Age at First Child Frequency of Cycle (Q days) 27 Sexually Active? Y Menses Monthly Y Date of Last Pap Smear Sexual Problems? N LMP Definite Desired Control Method Unknown Obstetrics History GPAL:G 0 P 0 0 0 0 Type Value Multiple Births 0 Full Term 0 Induced 0 Spontaneous 0 Premature 0 Living 0 Ectopics 0 Total 0 Immunizations Vaccine Type Date Status Note Provider Nam e and Address Organization Details Recorded Time Tdap 6 completed Not Available [facility] 10/08/2019 02:30:20 COVID-19, mRNA, LNP-S, PF, 30 mcg/0.3 mL dose 1 completed Fernanda agosto, [place] - [facility] 03/27/2021 11:21:52 COVID-19, mRNA, LNP-S, PF, 30 mcg/0.3 mL dose 1 completed Fernanda [place], [place] - [facility] 03/27/2021 11:22:16 HPV, quadrivalent 1 completed Dixon agosto, [place] - [facility] 02/27/2015 12:20:28 Influenza, high-dose, trivalent, PF 5 completed Dixon agosto, [place] - [facility] 02/27/2015 12:21:10 Influenza, split virus, quadrivalent, preservative 5 completed Not Available [facility] 10/08/2019 02:45:27 Past Encounters Encounter ID Performer Location Encounter Start Date Encounter Closed Date Diagnosis/Indication Diagnosis SNOMED-CT Code Diagnosis ICD10 Code Diagnosis Note [id number] MD Kathleen Holder ([facility]) [address] [place] [address] 02/27/2015 11:06:03 02/27/2015 12:27:18 Gynecologic examination [id number] [facility] surveillance [id number] [facility] (Adult Med) [address] [place] [phone] 06/25/2015 14:20:07 06/27/2015 14:52:43 Influenza vaccine needed 6474462693 106 Z28.3 General ex amination of patient 381731144 Z00.8 19 y/o WF who presents to this office as a new patient, her last provider was Dr. Coon (Pediatric ian_) Abdominal pain 18406715 R10.9 Family history of Crohn's. Possibilit ies include Cholelithi asis, PUD, Inflammato ry bowel disease and Irritable bowel syndrome. Discontinu e Ibuprofen which she only uses about four times a week. Acne 31958926 L70.9 Reported acne, She has been using OTC soaps [id number] Kitty Baez MD [facility] (Adult Med) [address] [place] [phone] 07/19/2015 09:54:19 07/19/2015 13:00:41 Abdominal pain 73054541 R10.9 Family history of Crohn's. Her symptoms are now more random, labs suggest Inflammato ry bowel disease. Her US was normal, a GI evaluation is pending Impaired f asting glycemia 535661794 R73.01 [id number] MD Kathleen Holder (Adult Med) [address] [place] [phone] 11/15/2015 11:51:26 11/15/2015 13:03:25 Crohn's disease 09066444 K50.90 Impaired f asting glycemia 593224290 R73.01 Active or passive immunization 064186959 Z23 Health Concerns Section Related Observation LastModified by Organization Detai ls LastModified Time None Recorded Concern Status LastModified by Organization Details LastModified Time None Recorded Advance Directives Directive N: Payers Encounter Date Sequence Insurance Name Policy Number Policy Thompson Covered Member ID Thompson Member ID Guarantor Name 02/27/2015 1 [place] Dede Jackson [id number] Dede Jackson 06/25/2015 1 [facility] (MEDICAID HMO) [id number] Dede Jackson [id number] Dede Jackson 07/19/2015 1 [facility] (MEDICAID HMO) [id number] Dede Jackson [id number] Dede Jackson 11/15/2015 1 [facility] (MEDICAID HMO) [id number] Dede Jackson [id number] Dede Jackson OBGyn Episode No OBEpisode recorded.
[2024-12-26 13:38] LABS: Hepatitis B Surface Anti Res Negative
[2024-12-26 14:02] LABS: Erythrocyte Sedimentation Rate 15 mm/hr (0-20)
[2024-12-28 18:34] LABS: NIL 0.03 IU/mL; Quantiferon TB Plus, 1T NEGATIVE (NEGATIVE); TB1-NIL <0.00 IU/mL; TB2-NIL <0.00 IU/mL
== END 2024-12-26 11:37 | disposition home or self-care (01) ==
PROVIDERS: PCP Family Medicine; Visit Provider Nurse Practitioner
DX: K50.819 Crohn's disease of both small and large intestine with unspecified complications (principal)
CPT/HCPCS: 36415; 80053; 82607; 82652; 82728; 82746; 83540; 83550; 85027; 85652; 86140; 86480; 86706; 87340

== ENCOUNTER 2024-12-27 11:34 | Outpatient (CLI) | payer BC, SELFPAY | END 2024-12-27 11:35 | disposition home or self-care (01) | LOC: ANHLAB 11:35 | PROVIDERS: PCP Family Medicine; Visit Provider Nurse Practitioner | DX: K50.819 Crohn's disease of both small and large intestine with unspecified complications (principal) | CPT/HCPCS: 83993 ==

== ENCOUNTER 2025-02-01 00:41 | Day surgery (SDC) | payer BC, SELFPAY ==
[2025-01-20 15:04] VITALS: BMI 21.9
--- OUTSIDE RECORDS SUMMARY | 2025-02-01 00:43 | XMS_ITS | Data Portability ---
Author Organization [facility] JESUSJordan Address [address] [place] [address] Assessment No assessment recorded. Plan of Treatment Reminders Order Date Submit Date Provider Last Modified By Organization Details Last Modified Time Details Appointments None recorded. Lab HbA1c (hemoglob in A1c), blood 2015 016 asavala [facility], [address], [place], [address], 6 13:07:40 glucose, fasting, QN, serum or plasma 2015 016 tdehne [facility], [address], [place], [address], 7 19:47:23 HbA1c (hemoglob in A1c), blood 2014 015 asavala [facility], [address], [place], [address], 5 10:37:26 glucose, fasting, QN, serum or plasma 2014 015 asavala [facility], [address], [place], [address], 5 10:37:26 inflammat ory bowel disease Ab panel, serum 2014 015 THOR [facility], [address], [place], [address], 11:13:26 test, urine 2014 THOR In-Office Order, Internal Use Only DO Not Attach Compendium DO Not Attach Compendium, Do Not Delete/merge, [id number] 17:43:18 H pylori urea breath test, co2 infrared 2014 THOR [facility], [address], [place], [address], 11:13:28 hepatitis C Ab, serum 2014 THOR [facility], [address], [place], [address], 11:13:27 HIV (1+O+2) Ab, serum 2014 THOR [facility], [address], [place], [address], 11:13:26 CMP, serum or plasma 2014 THOR [facility], [address], [place], [address], 11:13:24 CBC w/ auto diff 2014 THOR [facility], [address], [place], [address], 11:13:23 lipid panel, serum 2014 THOR [facility], [address], [place], [address], 11:13:22 urinalysi s, complete 2014 015 THOR LACKEY, [address], [place], [address], 5 11:13:25 urinalysi s, dipstick 2014 015 horace In-Office Order, Internal Use Only DO Not Attach Compendium DO Not Attach Compendium, Do Not Delete/merge, [id number] 5 14:30:36 bacterial vaginosis + vaginitis panel, vaginal 2014 015 THOR [facility]AC[facility], [address], [place], [address], 5 09:52:17 HSV (1+2) DNA, qual, PCR, unspecifi ed specimen 2014 015 THOR L[facility], [address], [place], [address], 5 09:52:18 culture, vaginal/r ectal, streptoco ccus group B 2014 015 THOR LACKEY, [address], [place], [address], 5 09:52:18 test, urine 2014 015 horace In-Office Order, Internal Use Only DO Not Attach Compendium DO Not Attach Compendium, Do Not Delete/merge, [id number] 5 14:30:36 Referral None recorded. Procedures None recorded. Surgeries None recorded. Imaging beataoun drios er - Pain 2014 015 THOR Not available 5 14:39:49 Medication Orders Nexplanon 68 mg subdermal implant 2014 [id number], [address] [facility], [place], [place], [id number], 5 14:59:16 Patient TargetsNo targets recorded. Patient Instructions Encounter Date Encounter Id Patient Instructions Last Modified By Organization Details Last Modified Time 07/19/2015 [id number] abdominal pain: care instructions asavala Not available [...] DO Not Attach Compendium, Do Not Delete/merge, [id number] 06/25/2015 15:07:11 02/28/20 15 02/27/2015 pregn keith test, urine HCG negati ve Not Available In-Office Order Internal Use Only DO Not Attach Compendium DO Not Attach Compendium, Do Not Delete/merge, [id number] 02/27/2015 14:26:34 02/28/20 15 02/27/2015 urina lysis , dipst ick Leukocytes Small Not Available In-Offi ce Order Internal Use Only DO Not Attach Compendium DO Not Attach Compendium, Do Not Delete/merge, [id number] 02/27/2015 11:54:42 02/28/20 15 02/27/2015 urina lysis , dipst ick Nitrite negati ve Not Available In-Office Order Internal Use Only DO Not Attach Compendium DO Not Attach Compendium, Do Not Delete/merge, [id number] 02/27/2015 11:54:42 02/28/20 15 02/27/2015 urina lysis , dipst ick Urobilinogen .2 Not Available In-Of fice Order Internal Use Only DO Not Attach Compendium DO Not Attach Compendium, Do Not Delete/merge, [id number] 02/27/2015 11:54:42 02/28/20 15 02/27/2015 urina lysis [...] 02/27/2015 urina lysis , dipst ick Specific [place] 1.030 Not Available In-Off ice Order Internal [...] NEGATI VE negati ve Not Available [facility] ([facility]) [address] [facility], [place], [address], 03/02/2015 09:52:17 02/28/20 15 03/01/2015 bacte rial vagin osis + vagin itis panel , vagin al neisseria gonorrhoeae, MITCHELL NEGATI VE negati ve Not Available [facility] ([facility]) [address] [facility], [place], [address], 03/02/2015 09:52:17 02/28/20 15 03/02/2015 bacte rial vagin osis + vagin itis panel , vagin al atopobium vaginae HIGH - 2 score abnormal Not Available [facility] ([facility]) [address] [facility], [place], [address], 03/02/2015 09:52:17 02/28/2003/02/2015 bacte rial vagin osis + vagin itis panel , vagin al bvab 2 HIGH - 2 score abnormal Not Available [facility] ([facility]) [address] [place], [address], 03/02/2015 09:52:17 02/28/2003/02/2015 bacte rial vagin osis + vagin itis panel , vagin al megasphaera 1 HIGH - 2 score abnormal CALCU LATE TOTAL SCORE BY GIOVANNY Fleming THE 3 INDIV IDUAL BACTE RIAL VAGIN OSIS (BV) MARKE R SCORE S TOGET HER. TOTAL SCORE IS INTER PRETE D FOLLO WS: TOTAL SCORE 0-1: INDIC ATES THE ABSEN CE OF BV. TOTAL SCORE 2: INDET ERMIN ATE FOR BV. ADDIT IONAL CLINI LTAOYA DATA SHOUL D BE EVALU ATED TO [...] IS NOT NECES PARDEEP. Not Available [facility] ([facility]) [address] [place], [address], 03/02/2015 09:52:17 02/28/20 15 03/02/2015 bacte rial vagin osis + vagin itis panel , vagin al trang albicans, MITCHELL NEGATI VE negati ve Not Available [facility] ([facility]) [address] [place], [address], 03/02/2015 09:52:17 02/28/2003/02/2015 bacte rial vagin osis [...] IS NOT NECES PARDEEP. Not Available [facility] ([facility]) [address] [place], [address], 03/02/2015 09:52:17 02/28/2003/02/2015 bacte rial vagin osis + vagin itis panel , vagin al trich vag by MITCHELL NEGATI VE negati ve Not Available [facility] ([facility]) [address] [place], [address], 03/02/2015 09:52:17 02/28/2003/01/2015 HSV (1+2) DNA, qual, PCR, unspe cifie d speci men hsv 1 MITCHELL NEGATI VE negati ve Not Available [facility] ([facility]) [address] [place], [address], 03/02/2015 09:52:18 02/28/20 15 03/01/2015 HSV (1+2) DNA, qual, PCR, unspe cifie d speci men hsv 2 MITCHELL NEGATI VE negati ve Not Available [facility] ([facility]) [address] [place], [address], 03/02/2015 09:52:18 02/28/20 15 03/01/2015 cultu re, [...] LINES , MMWR, 2009) Not Available [facility] ([facility]) [address] [place], [address], 03/02/2015 09:52:18 06/25/20 15 06/26/2015 lipid panel , serum cholesterol, total 145 mg/dL 100-18 9 EFF ECTIV E OCTOB ER 2014 THE REFER ENCE INTER JONI FOR LUIS FERNANDO STERO L, TOTAL WILL BE CERRATO ING TO: 0 - 19 YEARS 100 - 169 >19 YEARS 100 - 199 Not Available [facility] ([facility]) [address] [place], [address], 07/02/2015 11:13:22 06/25/20 15 06/26/2015 lipid panel , serum triglyceride s 87 mg/dL 0-114 EFF ECTIV E OCTOB ER 2014 THE REFER ENCE INTER JONI FOR TRIGL YCERI ROSINA WILL BE CERRATO ING TO: 0 - 9 YEARS 0 - 74 10 - 19 YEARS 0 - 89 >19 YEARS 0 - 149 Not Available [facility] ([facility]) [address] [place], [address], 07/02/2015 11:13:22 06/25/20 15 06/26/2015 lipid panel , serum HDL cholesterol 35 mg/dL >39 below low normal ACCOR DING TO ATP-I II GUIDE LINES , HDL-C >59 MG/DL IS CONSI DERED A NEGAT ESTRELLA RISK FACTO R FOR CHD. Not Available [facility] ([facility]) [address] [facility], [place], [address], 07/02/2015 11:13:22 06/25/20 15 06/26/2015 lipid panel , serum VLDL cholesterol latoya 17 mg/dL 5-40 Not Available [facility] ([facility]) [address] [facility], [place], [address], 07/02/2015 11:13:22 06/25/20 15 06/26/2015 lipid panel , serum LDL cholesterol calc 93 mg/dL 0-119 EFF ECTIV E OCTOB ER 2014 THE REFER ENCE INTER JONI FOR LDL LUIS FERNANDO STERO L CALC WILL BE CERRATO ING TO: 0 - 19 YEARS 0 - 109 >19 YEARS 0 - 99 Not Available [facility] ([facility]) [address] [facility], [place], [address], 07/02/2015 11:13:22 06/25/20 15 06/26/2015 lipid panel , serum comment: AIRPLANE PATROL PILOT Not Available [facility] ([facility]) [address] [facility], [place], [address], 07/02/2015 11:13:22 06/25/20 15 06/26/2015 lipid panel , serum LDL/HDL ratio 2.7 ratio _unit s 0.0-3. 2 LDL/H DL RATIO MEN WOMEN 1/2 AVG.R ISK 1.0 1.5 AVG.R ISK 3.6 3.2 2X AVG.R ISK 6.2 5.0 3X AVG.R ISK 8.0 6.1 Not Available [facility] ([facility]) [address] [facility], [place], [address], 07/02/2015 11:13:22 06/25/20 15 06/26/2015 CBC w/ auto diff WBC 6.9 x10e3 /uL 3.4-10 .8 Not Available [facility] ([facility]) [address] [place], [address], 07/02/2015 11:13:23 06/25/20 15 06/26/2015 CBC w/ auto diff RBC 4.56 x10e6 /uL 3.77-5 .28 Not Available [facility] ([facility]) [address] [place], [address], 07/02/2015 11:13:23 06/25/20 15 06/26/2015 CBC w/ auto diff hemoglobin 12.6 g/dL 11.1-1 5.9 Not Available [facility] ([facility]) [address] [facility], [place], [address], 07/02/2015 11:13:23 06/25/20 15 06/26/2015 CBC w/ auto diff hematocrit 37.7 % 34.0-4 6.6 Not Available [facility] ([facility]) [address] [facility], [place], [address], 07/02/2015 11:13:23 06/25/20 15 06/26/2015 CBC w/ auto diff MCV 83 fL 79-97 Not Available [facility] ([facility]) [address] [facility], [place], [address], 07/02/2015 11:13:23 06/25/20 15 06/26/2015 CBC w/ auto diff MCH 27.6 pg 26.6-3 3.0 Not Available [facility] ([facility]) [address] [place], [address], 07/02/2015 11:13:23 06/25/20 15 06/26/2015 CBC w/ auto diff MCHC 33.4 g/dL 31.5-3 5.7 Not Available [facility] ([facility]) [address] [place], [address], 07/02/2015 11:13:23 06/25/20 15 06/26/2015 CBC w/ auto diff RDW 13.6 % 12.3-1 5.4 Not Available [facility] ([facility]) [address] [facility], [place], [address], 07/02/2015 11:13:23 06/25/20 15 06/26/2015 CBC w/ auto diff platelets 275 x10e3 /uL 150-37 9 Not Available [facility] ([facility]) [address] [facility], [place], [address], 07/02/2015 11:13:23 06/25/20 15 06/26/2015 CBC w/ auto diff neutrophils 68 % Not Available [facility] ([facility]) [facility] [place], [address], 07/02/2015 11:13:23 06/25/20 15 06/26/2015 CBC w/ auto diff lymphs 15 % Not Available [facility] ([facility]) [address] [place] [address], [address], 07/02/2015 11:13:23 06/25/20 15 06/26/2015 CBC w/ auto diff monocytes 13 % Not Available [facility] ([facility]) [address] [place] [address], [address], 07/02/2015 11:13:23 06/25/20 15 06/26/2015 CBC w/ auto diff eos 4 % Not Available [facility] ([facility]) [facility] [place], [address], 07/02/2015 11:13:23 06/25/20 15 06/26/2015 CBC w/ auto diff basos 0 % Not Available [facility] ([facility]) [address] [place] [address], [address], 07/02/2015 11:13:23 06/25/20 15 06/26/2015 CBC w/ auto diff immature cells AIRPLANE PATROL PILOT Not Available [facility] ([facility]) [address] [place], [address], 07/02/2015 11:13:23 06/25/20 15 06/26/2015 CBC w/ auto diff neutrophils (absolute) 4.6 x10e3 /uL 1.4-7. 0 Not Available [facility] ([facility]) [address] [place], [address], 07/02/2015 11:13:23 06/25/20 15 06/26/2015 CBC w/ auto diff lymphs (absolute) 1.0 x10e3 /uL 0.7-3. 1 Not Available [facility] ([facility]) [address] [place], [address], 07/02/2015 11:13:23 06/25/20 15 06/26/2015 CBC w/ auto diff monocytes(ab solute) 0.9 x10e3 /uL 0.1-0. 9 Not Available [facility] ([facility]) [address] [place], [address], 07/02/2015 11:13:23 06/25/20 15 06/26/2015 CBC w/ auto diff eos (absolute) 0.3 x10e3 /uL 0.0-0. 4 Not Available [facility] ([facility]) [address] [place], [address], 07/02/2015 11:13:23 06/25/20 15 06/26/2015 CBC w/ auto diff baso (absolute) 0.0 x10e3 /uL 0.0-0. 2 Not Available [facility] ([facility]) [address] [place], [address], 07/02/2015 11:13:23 06/25/20 15 06/26/2015 CBC w/ auto diff immature granulocytes 0 % Not Available [facility]) [address] [place], [address], 07/02/2015 11:13:23 06/25/20 15 06/26/2015 CBC w/ auto diff immature grans (abs) 0.0 x10e3 /uL 0.0-0. 1 Not Available [facility] ([facility]) [address] [place] [address], [address], 07/02/2015 11:13:23 06/25/20 15 06/26/2015 CBC w/ auto diff NRBC AIRPLANE PATROL PILOT Not Available [facility] ([facility]) [address] [place] [address], [address], 07/02/2015 11:13:23 06/25/20 15 06/26/2015 CBC w/ auto diff hematology comments: AIRPLANE PATROL PILOT Not Available [facility] ([facility]) [address] [place] [address], [address], 07/02/2015 11:13:23 06/25/20 15 06/26/2015 CMP, serum or plasm a glucose, serum 103 mg/dL 65-99 above high normal Not Available [facility] ([facility]) [address] [place], [address], 07/02/2015 11:13:24 06/25/20 15 06/26/2015 CMP, serum or plasm a BUN 11 mg/dL 6-20 Not Available [facility] ([facility]) [address] [place] [address], [address], 07/02/2015 11:13:24 06/25/20 15 06/26/2015 CMP, serum or plasm a creatinine, serum 0.76 mg/dL 0.57-1 .00 Not Available [facility] ([facility]) [address] [place], [address], 07/02/2015 11:13:24 06/25/20 15 06/26/2015 CMP, serum or plasm a eGFR if nonafricn AM 113 mL/mi n/1.7 3 >59 Not Available [facility] ([facility]) [address] [place], [address], 07/02/2015 11:13:24 06/25/20 15 06/26/2015 CMP, serum or plasm a eGFR if africn AM 131 mL/mi n/1.7 3 >59 Not Available [facility] ([facility]) [address] [place], [address], 07/02/2015 11:13:24 06/25/20 15 06/26/2015 CMP, serum or plasm a BUN/creatini ne ratio 14 8-20 Not Available [facility] ([facility]) [address] [place], [address], 07/02/2015 11:13:24 06/25/20 15 06/26/2015 CMP, serum or plasm a sodium, serum 140 mmol/ L 134-14 4 Not Available [facility] ([facility]) [address] [place], [address], 07/02/2015 11:13:24 06/25/20 15 06/26/2015 CMP, serum or plasm a potassium, serum 4.3 mmol/ L 3.5-5. 2 Not Available [facility] ([facility]) [address] [place] [address], [address], 07/02/2015 11:13:24 06/25/20 15 06/26/2015 CMP, serum or plasm a chloride, serum 101 mmol/ L 97-108 Not Available [facility] ([facility]) [address] [place] [address], [address], 07/02/2015 11:13:24 06/25/20 15 06/26/2015 CMP, serum or plasm a carbon dioxide, total 23 mmol/ L 18-29 Not Available [facility] ([facility]) [address] [place] [address], [address], 07/02/2015 11:13:24 06/25/20 15 06/26/2015 CMP, serum or plasm a calcium, serum 9.0 mg/dL 8.7-10 .2 Not Available [facility] ([facility]) [address] [facility] [place], [address], 07/02/2015 11:13:24 06/25/20 15 06/26/2015 CMP, serum or plasm a protein, total, serum 7.0 g/dL 6.0-8. 5 Not Available [facility] ([facility]) [address] [facility] [place], [address], 07/02/2015 11:13:24 06/25/20 15 06/26/2015 CMP, serum or plasm a albumin, serum 4.3 g/dL 3.5-5. 5 Not Available [facility] ([facility]) [address] [facility], [place], [address], 07/02/2015 11:13:24 06/25/20 15 06/26/2015 CMP, serum or plasm a globulin, total 2.7 g/dL 1.5-4. 5 Not Available [facility] ([facility]) [address] [facility] [place], [address], 07/02/2015 11:13:24 06/25/20 15 06/26/2015 CMP, serum or plasm a A/G ratio 1.6 1.1-2. 5 Not Available [facility] ([facility]) [address] [facility] [place], [address], 07/02/2015 11:13:24 06/25/20 15 06/26/2015 CMP, serum or plasm a bilirubin, total 0.2 mg/dL 0.0-1. 2 Not Available [facility] ([facility]) [address] [facility] [place], [address], 07/02/2015 11:13:24 06/25/20 15 06/26/2015 CMP, serum or plasm a alkaline phosphatase, S 62 IU/L 39-117 Not Available [facility] ([facility]) [address] [place], [address], 07/02/2015 11:13:24 06/25/20 15 06/26/2015 CMP, serum or plasm a AST (SGOT) 14 IU/L 0-40 Not Available [facility] ([facility]) [address] [facility] [place], [address], 07/02/2015 11:13:24 06/25/20 15 06/26/2015 CMP, serum or plasm a ALT (SGPT) 7 IU/L 0-32 Not Available [facility] ([facility]) [address] [facility] [place], [address], 07/02/2015 11:13:24 06/25/20 15 06/26/2015 urina lysis , compl ete specific gravity 1.022 1.005- 1.030 Not Available [facility] ([facility]) [address] [place], [address], 07/02/2015 11:13:25 06/25/20 15 06/26/2015 urina lysis , compl ete pH 6.0 5.0-7. 5 Not Available [facility] ([facility]) [address] [facility] [place], [address], 07/02/2015 11:13:25 06/25/20 15 06/26/2015 urina lysis , compl ete urine-color YELLOW yellow Not Available [facility] ([facility]) [address] [place], [address], 07/02/2015 11:13:25 06/25/20 15 06/26/2015 urina lysis , compl ete appearance CLOUDY clear abnormal Not Available [facility] ([facility]) [address] [place], [address], 07/02/2015 11:13:25 06/25/20 15 06/26/2015 urina lysis , compl ete WBC esterase 1+ negati ve abnormal Not Available [facility] ([facility]) [address] [place], [address], 07/02/2015 11:13:25 06/25/20 15 06/26/2015 urina lysis , compl ete protein TRACE negati ve/tra ce Not Available [facility] ([facility]) [address] [place], [address], 07/02/2015 11:13:25 06/25/20 15 06/26/2015 urina lysis , compl ete glucose NEGATI VE negati ve Not Available [facility] ([facility]) [address] [place], [address], 07/02/2015 11:13:25 06/25/20 15 06/26/2015 urina lysis , compl ete glucose reflex AIRPLANE PATROL PILOT Not Available [facility] ([facility]) [address] [place], [address], 07/02/2015 11:13:25 06/25/20 15 06/26/2015 urina lysis , compl ete ketones NEGATI VE negati ve Not Available [facility] ([facility]) [address] [place], [address], 07/02/2015 11:13:25 06/25/20 15 06/26/2015 urina lysis , compl ete occult blood NEGATI VE negati ve Not Available [facility] ([facility]) [address] [place], [address], 07/02/2015 11:13:25 06/25/20 15 06/26/2015 urina lysis , compl ete bilirubin NEGATI VE negati ve Not Available [facility] ([facility]) [address] [place], [address], 07/02/2015 11:13:25 06/25/20 15 06/26/2015 urina lysis , compl ete urobilinogen ,semi-qn 0.2 mg/dL 0.0-1. 9 Not Available [facility] ([facility]) [address] [facility], [address], 07/02/2015 11:13:25 06/25/20 15 06/26/2015 urina lysis , compl ete nitrite, urine NEGATI VE negati ve Not Available [facility] ([facility]) [address] [place], [address], 07/02/2015 11:13:25 06/25/20 15 06/26/2015 urina lysis , compl ete microscopic examination SEE BELOW: MICRO SCOPI C WAS INDIC ATED AND WAS PERFO RMED. Not Available [facility] ([facility]) [address] [place], [address], 07/02/2015 11:13:25 06/25/20 15 06/26/2015 urina lysis , compl ete WBC 6-10 /hpf 0 - 5 abnormal Not Available [facility] ([facility]) [address] [place], [address], 07/02/2015 11:13:25 06/25/20 15 06/26/2015 urina lysis , compl ete RBC 0-2 /hpf 0 - 2 Not Available [facility] ([facility]) [address] [facility], [place], [address], 07/02/2015 11:13:25 06/25/20 15 06/26/2015 urina lysis , compl ete epithelial cells (non renal) >10 /hpf 0 - 10 abnormal Not Available [facility] ([facility]) [address] [place], [address], 07/02/2015 11:13:25 06/25/20 15 06/26/2015 urina lysis , compl ete epithelial cells (renal) AIRPLANE PATROL PILOT Not Available [facility] ([facility]) [address] [place], [address], 07/02/2015 11:13:25 06/25/20 15 06/26/2015 urina lysis , compl ete casts AIRPLANE PATROL PILOT Not Available [facility] ([facility]) [address] [facility], [place], [address], 07/02/2015 11:13:25 06/25/20 15 06/26/2015 urina lysis , compl ete cast type AIRPLANE PATROL PILOT Not Available [facility] ([facility]) [address] [place], [address], 07/02/2015 11:13:25 06/25/20 15 06/26/2015 urina lysis , compl ete crystals PRESEN T n/a abnormal Not Available [facility] ([facility]) [address] [place], [address], 07/02/2015 11:13:25 06/25/20 15 06/26/2015 urina lysis , compl ete crystal type AMORPH OUS SEDIME NT n/a Not Available [facility] ([facility]) [address] [place], [address], 07/02/2015 11:13:25 06/25/20 15 06/26/2015 urina lysis , compl ete mucus threads PRESEN T not estab. Not Available [facility] ([facility]) [address] [place], [address], 07/02/2015 11:13:25 06/25/20 15 06/26/2015 urina lysis , compl ete bacteria NONE SEEN none seen/f ew Not Available [facility] ([facility]) [address] [place], [address], 07/02/2015 11:13:25 06/25/20 15 06/26/2015 urina lysis , compl ete yeast AIRPLANE PATROL PILOT Not Available [facility] ([facility]) [address] [place], [address], 07/02/2015 11:13:25 06/25/20 15 06/26/2015 urina lysis , compl ete trichomonas AIRPLANE PATROL PILOT Not Available [facility] ([facility]) [address] [facility] [place], [address], 07/02/2015 11:13:25 06/25/20 15 06/26/2015 urina lysis , compl ete comment AIRPLANE PATROL PILOT Not Available [facility] ( [id number]|2025-02-01 11:52:00|2025-02-01 11:52:00|P.PNAN_ITS|SHINE[facility]|Health Information Management|[id number]|"Anes - Initial Pre Proc Eval Procedure: Operation Date: 02/01/25 12:30 Proposed Procedures p Colonoscopy - Donato Benjamin MD Date/Time: 02/01/25 11:52 Surgeon: Donato Benjamin MD Pre Op Diagnosis: Crohn's disease of both small and large intestine Patient Data Age: 29 Gender: F Height: 1.57 m Weight: 50.8 kg Last Vital Signs Temp 35.8 C L 02/01/25 11:18 Pulse 95 02/01/25 11:18 Resp 16 02/01/25 11:18 BP 118/65 02/01/25 11:18 Pulse Ox 100 02/01/25 11:18 O2 Del Method Room Air 02/01/25 11:18 Allergies Allergy/AdvReac Type Severity Reaction Status Date / Time Sulfa (Sulfonamide Allergy Mild hives Verified 02/01/25 11:23 Antibiotics) Home Medications Medication Instructions Recorded Confirmed Type buspirone 7.5 mg tablet 15 mg (2 x 7.5 mg) PO TID #270 tabs 09/12/24 02/01/25 Rx budesonide 3 mg 3 mg PO DAILY #90 ea 11/30/24 01/23/25 Rx capsule,delayed,extended release ondansetron 4 mg disintegrating 4 - 8 mg (1 - 2 x 4 mg) PO Q8H PRN 11/30/24 01/23/25 Rx tablet nausea and vomiting #60 tabs ustekinumab 90 mg/mL subcutaneous 90 mg subcut .every 8 weeks #1 mL 11/30/24 01/23/25 Rx syringe ([facility]) ustekinumab 90 mg/mL subcutaneous 90 mg/mL Syringe#1 Samples 11/30/24 01/23/25 Sample syringe ([facility]) hydroxyzine HCl 25 mg tablet 25 mg PO TID PRN anxiety #270 tabs 12/21/24 02/01/25 Rx lorazepam 1 mg tablet 1 mg PO BID PRN anxiety #30 tabs 12/21/24 01/23/25 Rx hyoscyamine sulfate 0.125 mg tablet 0.125 mg PO PRN abd pain 01/20/25 01/23/25 History paroxetine HCl 10 mg tablet 30 mg (3 x 10 mg) PO DAILY #270 01/23/25 02/01/25 Rx tabs Laboratory Tests 02/01/25 11:18 POC Urine HCG, Qual Negative (Negative) Patient hx anesthesia problems: none Family hx anesthesia problems: none Results Review: All pre-operative results and documents have been reviewed as part of the pre- operative evaluation. [facility] Past Medical History Medical History Abdominal mass Chronic nausea Abdominal pain Establishing care with new doctor, encounter for Pancreatitis Anxiety and depression Family History Family History Father Alcoholism Asthma Depression Mother Hypertension Thyroid disorder Social History Social History Social History: Engaged Smoking status: Never smoker Tobacco type: e-cigarettes/vaping Additional smoking assessment comments: Pt has been vaping for 3 years Alcohol intake: former Alcohol use details: Pt quit drinking alcohol 11/22/2023 Substance use: current Substance use type: marijuana Other substance usage details: daily Last use: Pt smokes marijuana daily. Do You Feel Safe in your Home?: Yes Lack of Transportation: No Lack of Food: Never True Current Housing: I Have Housing Concerned About Future Housing: No Difficulty Paying Gas/Electric Bills: No Difficulty Paying for Meds: No Currently Unemployed: YES Education: Don't Know Difficulty w/ Childcare or Family Care: No Living arrangements: with family Occupation/Education: unemployed Additional occupation/education comments: [employer] Gender identity (if verbalized by the patient): Female Sexual Orientation (if Verbalized by the Patient): Straight or Heterosexual Spiritual care concerns: No Anes - Eval Final PreProcedure Day of Procedure 02/01/25 11:52 Patient weight: normal Heart: regular rate and rhythm Lungs: clear to auscultation Airway: Mallampati scale class II Neurological: alert and oriented Last oral intake: >/= 8 hours ASA classification: III Emergent: no Anesthetic plan: proceed Anesthesia type and monitoring: general GIVS and standard monitoring Results Review: All pre-operative results and documents have been reviewed as part of the pre- operative evaluation. Informed Consent: The patient's anesthetic plan and its attendant risks and benefits were discussed with the patient/family/POA. Questions were solicited and answers provided to the satisfaction of the patient/family/POA. "
[2025-02-01 11:18] VITALS: BP 118/65; PULSE 95; RESP 16; TEMP 35.8; O2SAT 100; BMI 20.5
[2025-02-01 11:32] LABS: BEDSIDEPREGUCG Negative (Negative)
[2025-02-01] MEDS: LACTATED RINGERS 1,000 ML 150 ML IV CONT (11:33)
--- NOTE | 2025-02-01 11:52 | WPDANESEPPF ---
Anes - Initial Pre Proc Eval Procedure: Operation Date: 02/01/25 12:30 Proposed Procedures p Colonoscopy - Donato Benjamin MD Date/Time: 02/01/25 11:52 Surgeon: Donato Benjamin MD Pre Op Diagnosis: Crohn's disease of both small and large intestine Patient Data Age: 29 Gender: F Height: 1.57 m Weight: 50.8 kg Last Vital Signs Temp 35.8 C L 02/01/25 11:18 Pulse 95 02/01/25 11:18 Resp 16 02/01/25 11:18 BP 118/65 02/01/25 11:18 Pulse Ox 100 02/01/25 11:18 O2 Del Method Room Air 02/01/25 11:18 Allergies Allergy/AdvReac Type Severity Reaction Status Date / Time Sulfa (Sulfonamide Allergy Mild hives Verified 02/01/25 11:23 Antibiotics) Home Medications Medication Instructions Recorded Confirmed Type buspirone 7.5 mg tablet 15 mg (2 x 7.5 mg) PO TID #270 tabs 09/12/24 02/01/25 Rx budesonide 3 mg 3 mg PO DAILY #90 ea 11/30/24 01/23/25 Rx capsule,delayed,extended release ondansetron 4 mg disintegrating 4 - 8 mg (1 - 2 x 4 mg) PO Q8H PRN 11/30/24 01/23/25 Rx tablet nausea and vomiting #60 tabs ustekinumab 90 mg/mL subcutaneous 90 mg subcut .every 8 weeks #1 mL 11/30/24 01/23/25 Rx syringe (Stelara) ustekinumab 90 mg/mL subcutaneous 90 mg/mL Syringe#1 Samples 11/30/24 01/23/25 Sample syringe (Stelara) hydroxyzine HCl 25 mg tablet 25 mg PO TID PRN anxiety #270 tabs 12/21/24 02/01/25 Rx lorazepam 1 mg tablet 1 mg PO BID PRN anxiety #30 tabs 12/21/24 01/23/25 Rx hyoscyamine sulfate 0.125 mg tablet 0.125 mg PO PRN abd pain 01/20/25 01/23/25 History paroxetine HCl 10 mg tablet 30 mg (3 x 10 mg) PO DAILY #270 01/23/25 02/01/25 Rx tabs Laboratory Tests 02/01/25 11:18 POC Urine HCG, Qual Negative (Negative) Patient hx anesthesia problems: none Family hx anesthesia problems: none Results Review: All pre-operative results and documents have been reviewed as part of the pre-operative evaluation. [facility] Past Medical History Medical History Abdominal mass Chronic nausea Abdominal pain Establishing care with new doctor, encounter for Pancreatitis Anxiety and depression Family History Family History Father Alcoholism Asthma Depression Mother Hypertension Thyroid disorder Social History Social History Social History: Engaged Smoking status: Never smoker Tobacco type: e-cigarettes/vaping Additional smoking assessment comments: Pt has been vaping for 3 years Alcohol intake: former Alcohol use details: Pt quit drinking alcohol 11/22/2023 Substance use: current Substance use type: marijuana Other substance usage details: daily Last use: Pt smokes marijuana daily. Do You Feel Safe in your Home?: Yes Lack of Transportation: No Lack of Food: Never True Current Housing: I Have Housing Concerned About Future Housing: No Difficulty Paying Gas/Electric Bills: No Difficulty Paying for Meds: No Currently Unemployed: YES Education: Don't Know Difficulty w/ Childcare or Family Care: No Living arrangements: with family Occupation/Education: unemployed Additional occupation/education comments: [employer] Gender identity (if verbalized by the patient): Female Sexual Orientation (if Verbalized by the Patient): Straight or Heterosexual Spiritual care concerns: No Anes - Eval Final PreProcedure Day of Procedure 02/01/25 11:52 Patient weight: normal Heart: regular rate and rhythm Lungs: clear to auscultation Airway: Mallampati scale class II Neurological: alert and oriented Last oral intake: >/= 8 hours ASA classification: III Emergent: no Anesthetic plan: proceed Anesthesia type and monitoring: general GIVS and standard monitoring Results Review: All pre-operative results and documents have been reviewed as part of the pre-operative evaluation. Informed Consent: The patient's anesthetic plan and its attendant risks and benefits were discussed with the patient/family/POA. Questions were solicited and answers provided to the satisfaction of the patient/family/POA.
--- NOTE | 2025-02-01 12:33 | P.HP_ITS ---
History of Present Illness History of Present Illness Consent: Risks, benefits, and alternatives have been discussed and questions answered. Patient agrees to proceed with procedure. Chief complaint: Crohn's disease of both small and large intestine Narrative: Dede Jackson is a 29 year old female here for colonoscopy, last 2023 with colitis and possible colon stricture. She was diagnosed with Crohn's disease around [address] Cabrera. Doing well on stelara with no more diarrhea. Review of Systems Review of Systems: All systems reviewed & are unremarkable except as noted in HPI and below PMFSH Past Medical History Medical History Abdominal mass Chronic nausea Abdominal pain Establishing care with new doctor, encounter for Pancreatitis Anxiety and depression Family History Family History Father Alcoholism Asthma Depression Mother Hypertension Thyroid disorder Social History Social History Social History: Engaged Smoking status: Never smoker Tobacco type: e-cigarettes/vaping Additional smoking assessment comments: Pt has been vaping for 3 years Alcohol intake: former Alcohol use details: Pt quit drinking alcohol 11/22/2023 Substance use: current Substance use type: marijuana Other substance usage details: daily Last use: Pt smokes marijuana daily. Do You Feel Safe in your Home?: Yes Lack of Transportation: No Lack of Food: Never True Current Housing: I Have Housing Concerned About Future Housing: No Difficulty Paying Gas/Electric Bills: No Difficulty Paying for Meds: No Currently Unemployed: YES Education: Don't Know Difficulty w/ Childcare or Family Care: No Living arrangements: with family Occupation/Education: unemployed Additional occupation/education comments: [employer] Gender identity (if verbalized by the patient): Female Sexual Orientation (if Verbalized by the Patient): Straight or Heterosexual Spiritual care concerns: No Meds Home Medications and Allergies Home Medications Medication Instructions Recorded Confirmed Type buspirone 7.5 mg tablet 15 mg (2 x 7.5 mg) PO TID #270 tabs 09/12/24 02/01/25 Rx budesonide 3 mg 3 mg PO DAILY #90 ea 11/30/24 01/23/25 Rx capsule,delayed,extended release ondansetron 4 mg disintegrating 4 - 8 mg (1 - 2 x 4 mg) PO Q8H PRN 11/30/24 01/23/25 Rx tablet nausea and vomiting #60 tabs ustekinumab 90 mg/mL subcutaneous 90 mg subcut .every 8 weeks #1 mL 11/30/24 01/23/25 Rx syringe (Stelara) ustekinumab 90 mg/mL subcutaneous 90 mg/mL Syringe#1 Samples 11/30/24 01/23/25 Sample syringe (Stelara) hydroxyzine HCl 25 mg tablet 25 mg PO TID PRN anxiety #270 tabs 12/21/24 02/01/25 Rx lorazepam 1 mg tablet 1 mg PO BID PRN anxiety #30 tabs 12/21/24 01/23/25 Rx hyoscyamine sulfate 0.125 mg tablet 0.125 mg PO PRN abd pain 01/20/25 01/23/25 History paroxetine HCl 10 mg tablet 30 mg (3 x 10 mg) PO DAILY #270 01/23/25 02/01/25 Rx tabs Allergies Allergy/AdvReac Type Severity Reaction Status Date / Time Sulfa (Sulfonamide Allergy Mild hives Verified 02/01/25 11:23 Antibiotics) Vital Signs Vital Signs - 24 hr 02/01/25 11:18 Temperature 96.4 F L Pulse Rate 95 Respiratory Rate 16 Blood Pressure 118/65 Pulse Oximetry 100 Oxygen Delivery Room Air Exam Const: General: comfortable and no acute distress HENMT: Face/Nose/Sinus: Normal nares present Eyes: General: appearance normal, both eyes and all related structures Neck: Neck: no JVD Resp: Auscultation: clear to auscultation bilaterally Cardio: Rate: regular rate Rhythm: regular rhythm GI: Inspection: non-distended GI Palp: Yes Soft to palpation Skin: General skin exam: normal color Neuro: General: gait normal Speech: normal speech Extrem: General: normal to inspection Psych: Mental Status: mental status grossly normal Assessment and Plan Assessment and plan (1) Crohn's colitis: Qualifiers: Digestive disease complication type: unspecified complication Qualified Code(s): K50.119 - Crohn's disease of large intestine with unspecified complications Code(s): K50.10 - Crohn's disease of large intestine without complications Status: Acute Assessment and Plan: colonoscopy doing well on stelara
[2025-02-01 12:50] VITALS: BP 97/51; PULSE 61; RESP 22; O2SAT 100
[2025-02-01 13:00] VITALS: BP 100/51; PULSE 56; RESP 21; O2SAT 100
[2025-02-01 13:10] VITALS: BP 107/64; PULSE 60; RESP 18; O2SAT 100
== END 2025-02-01 13:25 | disposition home or self-care (01) ==
PROVIDERS: Anesthesiology; PCP Family Medicine; Referring Provider Nurse Practitioner; Visit Provider Internal Medicine Gastroenterology
PROC: 0DJD8ZZ Inspection of Lower Intestinal Tract, Via Natural or Artificial Opening Endoscopic (ICD-10-PCS; CPT 45378; principal; 2025-02-01 12:30)
DX: K50.10 Crohn's disease of large intestine without complications (principal); K64.8 Other hemorrhoids; F41.8 Other specified anxiety disorders; F17.290 Nicotine dependence, other tobacco product, uncomplicated; F12.90 Cannabis use, unspecified, uncomplicated; R11.0 Nausea; Z87.19 Personal history of other diseases of the digestive system
CPT/HCPCS: 45378; 88305; J2003; J2704; J7120

== ENCOUNTER 2025-03-01 19:48 | Emergency (ER) | payer BC, SELFPAY ==
--- NOTE | ~2025-03-01 | CT_ITS ---
CT abdomen pelvis w con Ordering provider: Casper Lynch MD History: 29 years Female with . Abd pain, Crohns . Comparison: None. Technique: CT abdomen and pelvis with IV and without oral contrast. Automated exposure control and it erative reconstruction technique were employed. The dose-length product was 203.28 mGy-cm. 100 mL Omn ipaque 350 was given IV. Findings: VISUALIZED LOWER CHEST: Normal. UPPER ABDOMINAL ORGANS: Liver: Normal. Gallbladder: Normal. Spleen: Normal. Stomach/duodenum: Normal. Pancreas: Normal. Adrenals: Normal. Kidneys: Tiny cyst in the left kidney midpole. Small cyst in the right kidney midpole measuring 1.1 c m. PELVIC ORGANS: The bladder is underfilled with thickened wall. Right ovarian cyst measuring 2.3 cm. Soft tissue densities are seen adjacent to the uterus bilaterall y which may be slightly dilated fallopian loops. Ultrasound evaluation advised. BOWEL AND MESENTERY: Colon: No evidence of diverticulitis.. The appendix is not demonstrated. Small Bowel: Normal. No obstruction. Peritoneum/mesentery: No free air or free fluid. No mesenteric lymphadenopathy. RETROPERITONEUM: Normal aorta. No retroperitoneal lymphadenopathy. MUSCULOSKELETAL: Superficial soft tissues: The superficial soft tissues are normal. Bones: Normal spine. IMPRESSION: 1. No evidence of appendicitis, diverticulitis or intestinal obstruction. 2. Right ovarian cyst. Possible slightly dilated fallopian tubes. Ultrasound evaluation advised. Reviewed, dictated and finalized at location A. IMPRESSION: 1. No evidence of appendicitis, diverticulitis or intestinal obstruction. 2. Right ovarian cyst. Possible slightly dilated fallopian tubes. Ultrasound e valuation advised.
--- OUTSIDE RECORDS SUMMARY | 2025-03-01 19:50 | XMS_ITS | Data Portability ---
Author Organization [facility] JESUSJordan Address [address] [place] [address] Assessment No assessment recorded. Plan of Treatment Reminders Order Date Submit Date Provider Last Modified By Organization Details Last Modified Time Details Appointments None recorded. Lab HbA1c (hemoglob in A1c), blood 2015 016 asavala [facility], [address], [address], [place], [address], 6 13:07:40 glucose, fasting, QN, serum or plasma 2015 016 tdehne [facility], [address], [address], [place], [address], 7 19:47:23 HbA1c (hemoglob in A1c), blood 2014 015 asavala [facility], [address], [address], [place], [address], 5 10:37:26 glucose, fasting, QN, serum or plasma 2014 015 asavala [facility], [address], [place], [address], 5 10:37:26 inflammat ory bowel disease Ab panel, serum 2014 015 THOR [facility], [address], [place], [address], 11:13:26 test, urine 2014 THOR In-Office Order, Internal Use Only DO Not Attach Compendium DO Not Attach Compendium, Do Not Delete/merge, [id number] 17:43:18 H pylori urea breath test, co2 infrared 2014 [facility]OR [facility], [address], [place], [address], 11:13:28 hepatitis C Ab, serum 2014 [facility]OR [facility], [address], [address], [place], [address], 11:13:27 HIV (1+O+2) Ab, serum 2014 [facility]OR [facility], [address], [place], [address], 11:13:26 CMP, serum or plasma 2014 THOR [facility], [address], [place], [address], 11:13:24 CBC w/ auto diff 2014 THOR [facility], [address], [place], [address], 11:13:23 lipid panel, serum 2014 THOR [facility], [address], [address], [place], [address], 11:13:22 urinalysi s, complete 2014 015 THOR [facility], [address], [address], [place], [address], 5 11:13:25 urinalysi s, dipstick 2014 015 horace In-Office Order, Internal Use Only DO Not Attach Compendium DO Not Attach Compendium, Do Not Delete/merge, [id number] 5 14:30:36 bacterial vaginosis + vaginitis panel, vaginal 2014 015 [facility], [address] [facility] [address], [place], [address], 5 09:52:17 HSV (1+2) DNA, qual, PCR, unspecifi ed specimen 2014 015 [facility]OR [facility], [address] [facility] [address], [place], [address], 5 09:52:18 culture, vaginal/r ectal, streptoco ccus group B 2014 015 [facility], [address] [facility] [address], [place], [address], 5 09:52:18 test, urine 2014 015 horace In-Office Order, Internal Use Only DO Not Attach Compendium DO Not Attach Compendium, Do Not Delete/merge, [id number] 5 14:30:36 Referral None recorded. Procedures None recorded. Surgeries None recorded. Imaging ultrasoun d, rios er - Pain 2014 015 THOR Not available 5 14:39:49 Medication Orders Nexplanon 68 mg subdermal implant 2014 015 [id number], [address] [facility], [place], [place], [id number], 5 14:59:16 Patient TargetsNo targets recorded. Patient Instructions Encounter Date Encounter Id Patient Instructions Last Modified By Organization Details Last Modified Time 07/19/2015 [id number] abdominal pain: care instructions asavala Not available [...] DO Not Attach Compendium, Do Not Delete/merge, [id number] 06/25/2015 15:07:11 02/28/20 15 02/27/2015 pregn keith test, urine HCG negati ve Not Available In-Office Order Internal Use Only DO Not Attach Compendium DO Not Attach Compendium, Do Not Delete/merge, [id number] 02/27/2015 14:26:34 02/28/20 15 02/27/2015 urina lysis , dipst ick Leukocytes Small Not Available In-Offi ce Order Internal Use Only DO Not Attach Compendium DO Not Attach Compendium, Do Not Delete/merge, [id number] 02/27/2015 11:54:42 02/28/20 15 02/27/2015 urina lysis , dipst ick Nitrite negati ve Not Available In-Office Order Internal Use Only DO Not Attach Compendium DO Not Attach Compendium, Do Not Delete/merge, [id number] 02/27/2015 11:54:42 02/28/20 15 02/27/2015 urina lysis , dipst ick Urobilinogen .2 Not Available In-Of fice Order Internal Use Only DO Not Attach Compendium DO Not Attach Compendium, Do Not Delete/merge, [id number] 02/27/2015 11:54:42 02/28/20 15 02/27/2015 urina lysis [...] 02/27/2015 urina lysis , dipst ick Specific Cres[place] 1.030 Not Available In-Off ice Order Internal [...] negati ve Not Available [facility] ([facility]) [address] [facility], [place], [address], 03/02/2015 09:52:17 02/28/20 15 03/01/2015 bacte rial vagin osis + vagin itis panel , vagin al neisseria gonorrhoeae, MITCHELL NEGATI VE negati ve Not Available [facility] ([facility]) [address] [place], [address], 03/02/2015 09:52:17 02/28/20 15 03/02/2015 bacte rial vagin osis + vagin itis panel , vagin al atopobium vaginae HIGH - 2 score abnormal Not Available [facility] ([facility]) [address] [facility], [place], [address], 03/02/2015 09:52:17 02/28/2003/02/2015 bacte rial vagin osis + vagin itis panel , vagin al bvab 2 HIGH - 2 score abnormal Not Available [facility] ([facility]) [address] [place], [address], 03/02/2015 09:52:17 02/28/2003/02/2015 bacte rial vagin osis [...] NECES PARDEEP. Not Available [facility] ([facility]) [address] [place], [address], 03/02/2015 09:52:17 02/28/2003/02/2015 bacte rial vagin osis + vagin itis panel , vagin al trang albicans, MITCHELL NEGATI VE negati ve Not Available [facility] ([facility]) [address] [place], [address], 03/02/2015 09:52:17 02/28/20 15 03/02/2015 bacte rial [...] NECES PARDEEP. Not Available [facility] ([facility]) [address] [place], [address], 03/02/2015 09:52:17 02/28/2003/02/2015 bacte rial vagin osis + vagin itis panel , vagin al trich vag by MITCHELL NEGATI VE negati ve Not Available [facility] ([facility]) [address] [place], [address], 03/02/2015 09:52:17 02/28/2003/01/2015 HSV (1+2) DNA, qual, PCR, unspe cifie d speci men hsv 1 MITCHELL NEGATI VE negati ve Not Available [facility] ([facility]) [address] [place], [address], 03/02/2015 09:52:18 02/28/2003/01/2015 HSV (1+2) DNA, qual, PCR, unspe cifie d speci men hsv 2 MITCHELL NEGATI VE negati ve Not Available [facility] ([facility]) [address] [place], [address], 03/02/2015 09:52:18 02/28/20 15 03/01/2015 cultu re, [...] MMWR, 2009) Not Available [facility] ([facility]) [address] [place], [address], 03/02/2015 09:52:18 06/25/20 15 06/26/2015 lipid panel , serum cholesterol, total 145 mg/dL 100-18 9 EFF ECTIV E OCTOB ER 2014 THE REFER ENCE INTER JONI FOR LUIS FERNANDO STERO L, TOTAL WILL BE CERRATO ING TO: 0 - 19 YEARS 100 - 169 >19 YEARS 100 - 199 Not Available [facility] ([facility]) [address] [place], [address], 07/02/2015 11:13:22 06/25/20 15 06/26/2015 lipid panel , serum triglyceride s 87 mg/dL 0-114 EFF ECTIV E OCTOB ER 2014 THE REFER ENCE INTER JONI FOR TRIGL YCERI ROSINA WILL BE CERRATO ING TO: 0 - 9 YEARS 0 - 74 10 - 19 YEARS 0 - 89 >19 YEARS 0 - 149 Not Available [facility] ([facility]) [address] [place], [address], 07/02/2015 11:13:22 06/25/20 15 06/26/2015 lipid panel , serum HDL cholesterol 35 mg/dL >39 below low normal ACCOR DING TO ATP-I II GUIDE LINES , HDL-C >59 MG/DL IS CONSI DERED A NEGAT ESTRELLA RISK FACTO R FOR CHD. Not Available [facility] ([facility]) [address] [facility], [place], [address], 07/02/2015 11:13:22 06/25/20 15 06/26/2015 lipid panel , serum VLDL cholesterol latoya 17 mg/dL 5-40 Not Available [facility] ([facility]) [address] [facility], [place], [address], 07/02/2015 11:13:22 06/25/20 15 06/26/2015 lipid panel , serum LDL cholesterol calc 93 mg/dL 0-119 EFF ECTIV E OCTOB ER 2014 THE REFER ENCE INTER JONI FOR LDL LUIS FERNANDO STERO L CALC WILL BE CERRATO ING TO: 0 - 19 YEARS 0 - 109 >19 YEARS 0 - 99 Not Available [facility] ([facility]) [address] [facility], [place], [address], 07/02/2015 11:13:22 06/25/20 15 06/26/2015 lipid panel , serum comment: RISK AND INSURANCE MANAGER Not Available [facility] ([facility]) [address] [facility], [place], [address], 07/02/2015 11:13:22 06/25/20 15 06/26/2015 lipid panel , serum LDL/HDL ratio 2.7 ratio _unit s 0.0-3. 2 LDL/H DL RATIO MEN WOMEN 1/2 AVG.R ISK 1.0 1.5 AVG.R ISK 3.6 3.2 2X AVG.R ISK 6.2 5.0 3X AVG.R ISK 8.0 6.1 Not Available [facility] ([facility]) [address] [facility], [place], [address], 07/02/2015 11:13:22 06/25/20 15 06/26/2015 CBC w/ auto diff WBC 6.9 x10e3 /uL 3.4-10 .8 Not Available [facility] ([facility]) [address] [place], [address], 07/02/2015 11:13:23 06/25/20 15 06/26/2015 CBC w/ auto diff RBC 4.56 x10e6 /uL 3.77-5 .28 Not Available [facility] ([facility]) [address] [place], [address], 07/02/2015 11:13:23 06/25/20 15 06/26/2015 CBC w/ auto diff hemoglobin 12.6 g/dL 11.1-1 5.9 Not Available [facility] ([facility]) [address] [facility], [place], [address], 07/02/2015 11:13:23 06/25/20 15 06/26/2015 CBC w/ auto diff hematocrit 37.7 % 34.0-4 6.6 Not Available [facility] ([facility]) [address] [place], [address], 07/02/2015 11:13:23 06/25/20 15 06/26/2015 CBC w/ auto diff MCV 83 fL 79-97 Not Available [facility] ([facility]) [address] [facility], [place], [address], 07/02/2015 11:13:23 06/25/20 15 06/26/2015 CBC w/ auto diff MCH 27.6 pg 26.6-3 3.0 Not Available [facility] ([facility]) [address] [place], [address], 07/02/2015 11:13:23 06/25/20 15 06/26/2015 CBC w/ auto diff MCHC 33.4 g/dL 31.5-3 5.7 Not Available [facility] ([facility]) [facility] [place], [address], 07/02/2015 11:13:23 06/25/20 15 06/26/2015 CBC w/ auto diff RDW 13.6 % 12.3-1 5.4 Not Available [facility] ([facility]) [address] [place], [address], 07/02/2015 11:13:23 06/25/20 15 06/26/2015 CBC w/ auto diff platelets 275 x10e3 /uL 150-37 9 Not Available [facility] ([facility]) [address] [facility], [place], [address], 07/02/2015 11:13:23 06/25/20 15 06/26/2015 CBC w/ auto diff neutrophils 68 % Not Available [facility] ([facility]) [address] [place] [address], [address], 07/02/2015 11:13:23 06/25/20 15 06/26/2015 CBC w/ auto diff lymphs 15 % Not Available [facility] ([facility]) [address] [place] [address], [address], 07/02/2015 11:13:23 06/25/20 15 06/26/2015 CBC w/ auto diff monocytes 13 % Not Available [facility] ([facility]) [address] [place] [address], [address], 07/02/2015 11:13:23 06/25/20 15 06/26/2015 CBC w/ auto diff eos 4 % Not Available [facility] ([facility]) [address] [place] [address], [address], 07/02/2015 11:13:23 06/25/20 15 06/26/2015 CBC w/ auto diff basos 0 % Not Available [facility] ([facility]) [address] [place] [address], [address], 07/02/2015 11:13:23 06/25/20 15 06/26/2015 CBC w/ auto diff immature cells RISK AND INSURANCE MANAGER Not Available [facility] ([facility]) [address] [place], [address], 07/02/2015 11:13:23 06/25/20 15 06/26/2015 CBC w/ auto diff neutrophils (absolute) 4.6 x10e3 /uL 1.4-7. 0 Not Available [facility] ([facility]) [address] [place], [address], 07/02/2015 11:13:23 06/25/20 15 06/26/2015 CBC w/ auto diff lymphs (absolute) 1.0 x10e3 /uL 0.7-3. 1 Not Available [facility] ([facility]) [address] [place], [address], 07/02/2015 11:13:23 06/25/20 15 06/26/2015 CBC w/ auto diff monocytes(ab solute) 0.9 x10e3 /uL 0.1-0. 9 Not Available [facility] ([facility]) [address] [place], [address], 07/02/2015 11:13:23 06/25/20 15 06/26/2015 CBC w/ auto diff eos (absolute) 0.3 x10e3 /uL 0.0-0. 4 Not Available [facility] ([facility]) [address] [place], [address], 07/02/2015 11:13:23 06/25/20 15 06/26/2015 CBC w/ auto diff baso (absolute) 0.0 x10e3 /uL 0.0-0. 2 Not Available [facility] ([facility]) [address] [place], [address], 07/02/2015 11:13:23 06/25/20 15 06/26/2015 CBC w/ auto diff immature granulocytes 0 % Not Available [facility] ([facility]) [address] [place], [address], 07/02/2015 11:13:23 06/25/20 15 06/26/2015 CBC w/ auto diff immature grans (abs) 0.0 x10e3 /uL 0.0-0. 1 Not Available [facility] ([facility]) [address] [place], [address], 07/02/2015 11:13:23 06/25/20 15 06/26/2015 CBC w/ auto diff NRBC RISK AND INSURANCE MANAGER Not Available [facility] ([facility]) [address] [place], [address], 07/02/2015 11:13:23 06/25/20 15 06/26/2015 CBC w/ auto diff hematology comments: RISK AND INSURANCE MANAGER Not Available [facility] ([facility]) [address] [place], [address], 07/02/2015 11:13:23 06/25/20 15 06/26/2015 CMP, serum or plasm a glucose, serum 103 mg/dL 65-99 above high normal Not Available [facility] ([facility]) [address] [place], [address], 07/02/2015 11:13:24 06/25/20 15 06/26/2015 CMP, serum or plasm a BUN 11 mg/dL 6-20 Not Available [facility] ([facility]) [address] [place], [address], 07/02/2015 11:13:24 06/25/20 15 06/26/2015 CMP, serum or plasm a creatinine, serum 0.76 mg/dL 0.57-1 .00 Not Available [facility] ([facility]) [address] [place], [address], 07/02/2015 11:13:24 06/25/20 15 06/26/2015 CMP, serum or plasm a eGFR if nonafricn AM 113 mL/mi n/1.7 3 >59 Not Available [facility] ([facility]) [address] [place], [address], 07/02/2015 11:13:24 06/25/20 15 06/26/2015 CMP, serum or plasm a eGFR if africn AM 131 mL/mi n/1.7 3 >59 Not Available [facility] ([facility]) [address] [place], [address], 07/02/2015 11:13:24 06/25/20 15 06/26/2015 CMP, serum or plasm a BUN/creatini ne ratio 14 8-20 Not Available [facility] ([facility]) [address] [place], [address], 07/02/2015 11:13:24 06/25/20 15 06/26/2015 CMP, serum or plasm a sodium, serum 140 mmol/ L 134-14 4 Not Available [facility] ([facility]) [address] [place], [address], 07/02/2015 11:13:24 06/25/20 15 06/26/2015 CMP, serum or plasm a potassium, serum 4.3 mmol/ L 3.5-5. 2 Not Available [facility] ([facility]) [address] [place] [address], [address], 07/02/2015 11:13:24 06/25/20 15 06/26/2015 CMP, serum or plasm a chloride, serum 101 mmol/ L 97-108 Not Available [facility] ([facility]) [address] [place], [address], 07/02/2015 11:13:24 06/25/20 15 06/26/2015 CMP, serum or plasm a carbon dioxide, total 23 mmol/ L 18-29 Not Available [facility] ([facility]) [address] [place] [address], [address], 07/02/2015 11:13:24 06/25/20 15 06/26/2015 CMP, serum or plasm a calcium, serum 9.0 mg/dL 8.7-10 .2 Not Available [facility] ([facility]) [address] [facility] [place], [address], 07/02/2015 11:13:24 06/25/20 15 06/26/2015 CMP, serum or plasm a protein, total, serum 7.0 g/dL 6.0-8. 5 Not Available [facility] ([facility]) [address] [facility] [place], [address], 07/02/2015 11:13:24 06/25/20 15 06/26/2015 CMP, serum or plasm a albumin, serum 4.3 g/dL 3.5-5. 5 Not Available [facility] ([facility]) [address] [facility], [place], [address], 07/02/2015 11:13:24 06/25/20 15 06/26/2015 CMP, serum or plasm a globulin, total 2.7 g/dL 1.5-4. 5 Not Available [facility] ([facility]) [address] [facility], [place], [address], 07/02/2015 11:13:24 06/25/20 15 06/26/2015 CMP, serum or plasm a A/G ratio 1.6 1.1-2. 5 Not Available [facility] ([facility]) [address] [facility] [place], [address], 07/02/2015 11:13:24 06/25/20 15 06/26/2015 CMP, serum or plasm a bilirubin, total 0.2 mg/dL 0.0-1. 2 Not Available [facility] ([facility]) [address] [facility] [place], [address], 07/02/2015 11:13:24 06/25/20 15 06/26/2015 CMP, serum or plasm a alkaline phosphatase, S 62 IU/L 39-117 Not Available [facility] ([facility]) [address] [place], [address], 07/02/2015 11:13:24 06/25/20 15 06/26/2015 CMP, serum or plasm a AST (SGOT) 14 IU/L 0-40 Not Available [facility] ([facility]) [address] [facility] [place], [address], 07/02/2015 11:13:24 06/25/20 15 06/26/2015 CMP, serum or plasm a ALT (SGPT) 7 IU/L 0-32 Not Available [facility] ([facility]) [address] [facility] [place], [address], 07/02/2015 11:13:24 06/25/20 15 06/26/2015 urina lysis , compl ete specific gravity 1.022 1.005- 1.030 Not Available [facility] ([facility]) [address] [place], [address], 07/02/2015 11:13:25 06/25/20 15 06/26/2015 urina lysis , compl ete pH 6.0 5.0-7. 5 Not Available [facility] ([facility]) [address] [facility] [place], [address], 07/02/2015 11:13:25 06/25/20 15 06/26/2015 urina lysis , compl ete urine-color YELLOW yellow Not Available [facility] ([facility]) [address] [place], [address], 07/02/2015 11:13:25 06/25/20 15 06/26/2015 urina lysis , compl ete appearance CLOUDY clear abnormal Not Available [facility] ([facility]) [address] [place], [address], 07/02/2015 11:13:25 06/25/20 15 06/26/2015 urina lysis , compl ete WBC esterase 1+ negati ve abnormal Not Available [facility] ([facility]) [address] [place], [address], 07/02/2015 11:13:25 06/25/20 15 06/26/2015 urina lysis , compl ete protein TRACE negati ve/tra ce Not Available [facility] ([facility]) [address] [place], [address], 07/02/2015 11:13:25 06/25/20 15 06/26/2015 urina lysis , compl ete glucose NEGATI VE negati ve Not Available [facility] ([facility]) [address] [place], [address], 07/02/2015 11:13:25 06/25/20 15 06/26/2015 urina lysis , compl ete glucose reflex RISK AND INSURANCE MANAGER Not Available [facility] ([facility]) [address] [place], [address], 07/02/2015 11:13:25 06/25/20 15 06/26/2015 urina lysis , compl ete ketones NEGATI VE negati ve Not Available [facility] ([facility]) [address] [place], [address], 07/02/2015 11:13:25 06/25/20 15 06/26/2015 urina lysis , compl ete occult blood NEGATI VE negati ve Not Available [facility] ([facility]) [address] [place], [address], 07/02/2015 11:13:25 06/25/20 15 06/26/2015 urina lysis , compl ete bilirubin NEGATI VE negati ve Not Available [facility] ([facility]) [address] [place], [address], 07/02/2015 11:13:25 06/25/20 15 06/26/2015 urina lysis , compl ete urobilinogen ,semi-qn 0.2 mg/dL 0.0-1. 9 Not Available [facility] ([facility]) [address] [place], [address], 07/02/2015 11:13:25 06/25/20 15 06/26/2015 urina lysis , compl ete nitrite, urine NEGATI VE negati ve Not Available [facility] ([facility]) [address] [place], [address], 07/02/2015 11:13:25 06/25/20 15 06/26/2015 urina lysis , compl ete microscopic examination SEE BELOW: MICRO SCOPI C WAS INDIC ATED AND WAS PERFO RMED. Not Available [facility] ([facility]) [address] [place], [address], 07/02/2015 11:13:25 06/25/20 15 06/26/2015 urina lysis , compl ete WBC 6-10 /hpf 0 - 5 abnormal Not Available [facility] ([facility]) [address] [place], [address], 07/02/2015 11:13:25 06/25/20 15 06/26/2015 urina lysis , compl ete RBC 0-2 /hpf 0 - 2 Not Available [facility] ([facility]) [address] [facility], [place], [address], 07/02/2015 11:13:25 06/25/20 15 06/26/2015 urina lysis , compl ete epithelial cells (non renal) >10 /hpf 0 - 10 abnormal Not Available [facility] ([facility]) [address] [place], [address], 07/02/2015 11:13:25 06/25/20 15 06/26/2015 urina lysis , compl ete epithelial cells (renal) RISK AND INSURANCE MANAGER Not Available [facility] ([facility]) [address] [place], [address], 07/02/2015 11:13:25 06/25/20 15 06/26/2015 urina lysis , compl ete casts RISK AND INSURANCE MANAGER Not Available [facility] ([facility]) [address] [place], [address], 07/02/2015 11:13:25 06/25/20 15 06/26/2015 urina lysis , compl ete cast type RISK AND INSURANCE MANAGER Not Available [facility] ([facility]) [address] [place], [address], 07/02/2015 11:13:25 06/25/20 15 06/26/2015 urina lysis , compl ete crystals PRESEN T n/a abnormal Not Available [facility] ([facility]) [address] [place], [address], 07/02/2015 11:13:25 06/25/20 15 06/26/2015 urina lysis , compl ete crystal type AMORPH OUS SEDIME NT n/a Not Available [facility] ([facility]) [address] [place], [address], 07/02/2015 11:13:25 06/25/20 15 06/26/2015 urina lysis , compl ete mucus threads PRESEN T not estab. Not Available [facility] ([facility]) [address] [place], [address], 07/02/2015 11:13:25 06/25/20 15 06/26/2015 urina lysis , compl ete bacteria NONE SEEN none seen/f ew Not Available [facility] ([facility]) [address] [place], [address], 07/02/2015 11:13:25 06/25/20 15 06/26/2015 urina lysis , compl ete yeast RISK AND INSURANCE MANAGER Not Available [facility] ([facility]) [address] [place], [address], 07/02/2015 11:13:25 06/25/20 15 06/26/2015 urina lysis , compl ete trichomonas RISK AND INSURANCE MANAGER Not Available [facility] ([facility]) [address] [place], [address], 07/02/2015 11:13:25 06/25/20 15 06/26/2015 urina lysis , compl ete comment RISK AND INSURANCE MANAGER Not Available [facility] ([facility]) [address] [place] [address], [place], [address], 07/02/2015 11:13:25 06/25/20 15 06/26/2015 HIV (1+O+ 2) Ab, serum HIV 1/O/2 abs-index value <1.00 <1.00 INDEX VALUE : SPECI MEN REACT IVITY RELAT ESTRELLA TO THE NEGAT ESTRELLA CUTOF F. Not Available [facility] ([facility]) [address] [place] [address], [address], 07/02/2015 11:13:25 06/25/20 15 06/26/2015 HIV (1+O+ 2) Ab, serum HIV 1/O/2 abs, qual NON REACTI VE non reacti ve Not Available [facility] ([facility]) [address] [facility], [place], [address], 07/02/2015 11:13:25 06/25/20 15 06/27/2015 infla mmato ry bowel disea se Ab panel , serum saccharomyce s cerevisiae, IgG 30.8 units 0.0-24 .9 above high normal NEGAT ESTRELLA <20.0 EQUIV OCAL 20.1 - 24.9 POSIT ESTRELLA >OR= 25.0 Not Available [facility] ([facility]) [address] [place], [address], 07/02/2015 11:13:26 06/25/20 15 06/27/2015 infla mmato [...] FOR BOTH. Not Available [facility] ([facility]) [address] [facility], [place], [address], 07/02/2015 11:13:26 06/25/20 15 06/27/2015 infla mmato [...] COLIT IS Not Available [facility] ([facility]) [address] [facility], [place], [address], 07/02/2015 11:13:26 06/25/20 15 06/25/2015 hepat itis C Ab, serum PCR amplificatio n + detection COMMEN T PERFO RMED Not Available [facility] ([facility]) [address] [facility], [place], [address], 07/02/2015 11:13:27 06/25/20 15 07/02/2015 hepat itis C Ab, serum ngi HCV ultraqual COMMEN T NEGAT ESTRELLA: HCV RNA NOT DETEC ANTONIO QUALI TATIV E ONLY. PCR ASSAY PERFO RMED USING NATIO NAL JOHN ICS INSTI TUTE' S VALID ATED, PROPR IETAR Y METHO DOLOG Y. Not Available [facility] ([facility]) [address] [facility], [place], [address], 07/02/2015 11:13:27 06/25/20 15 06/27/2015 H pylor i urea breat h test, co2 infra red H. pylori breath test NEGATI VE negati ve Not Available [facility] ([facility]) [address] [facility], [place], [address], 07/02/2015 11:13:28 07/11/20 15 07/11/2015 ultra sound , gallb ladde r No observ ation record ed. [facility] [address] [place], [address], 07/19/2015 10:17:22 12/19/19 16 12/13/2015 MRI, abdom en No observ ation record ed. oao Not Available 2015 13:13:30 Result Notes None recorded. Problems Name Problem SNOMED Code Status Onset Date Resolution Date Notes Provider Name and Address Organization Details Recorded Time Bacterial vaginosis 864939526 Active Dixon Tirado triny, [place] - [facility] 5 10:04:44 Abdominal pain 37321343 Active Kitty Baez MD Attn: Harinder moran,[address] [place], [address], [place] - [facility] 5 10:22:44 Acne 70984577 Active Kitty Baez MD Attn: Harinder moran,[address] [place], [address], [place] [facility] 5 15:13:31 Impaired fasting glycemia 439494058 Active Kitty Baez MD Attn: Harinder moran,[address] [place], [address], [place] [facility] 6 12:53:49 Crohn's disease 60534900 Active Kitty Baez MD Attn: Harinder moran,[address] [place], [address], [place] [facility] 6 12:53:49 Notes:Some problems listed i n Documents: #[id number], #[id number], #[id number], #[id number] could not be added to this patient's chart. Please review these documents and add these problems to the patient's chart manually as needed. Problem Notes None recorded. Procedures Surgical History Date Name Laterality Status Provider Name and Address Organization Details Recorded Time 4 colonoscopy completed Kitty Baez MD Attn: Accounting,[address] [facility], [place], [address], [facility] 01/27/2024 12:30:57 1 Tonsillectomy completed Ava Reyes [place] [facility] 02/27/2015 11:34:19 Imaging Results None recorded. Procedure Notes None recorded. Medical Equipment None Reported. Allergies Allergen ID Allergen Name Allergen Category Reaction Reaction Severity Criticality Documentation Date Start Date Code Code System Note Provider Name and Address Organization Details Recorded Time 71479 Substance with sulfonami de structure and antibacte rial mechanism of action (substanc e) medicatio n hives moderate Not available 02/27/2015 82823 8003 SNOMED Ava Reyes MA null, [place] - [facility] 5 11:33:37 Medications Name Sig Start Date Stop Date [...] Available Not Available Vitals Date Recorded Body weight Body mass index (BMI) Respiratory rate Body temperature Heart rate Body height Systolic blood pressure Diastolic blood pressure Provider Name and Address Organization Details Last Updated DateTime 6 35710.6 7677 g 21.1 kg/m2 20 /min 97.6 [degF] 80 /min 161.29 cm 104 mm[Hg] 72 mm[Hg] December LAURIE Peterson [facility] 6 12:04:39 Date Recorded Body height Body mass index (BMI) Body weight Systolic blood pressure Diastolic blood pressure Provider Name and Address Organization Details Last Updated DateTime 02/27/2015 160.02 cm 23 kg/m2 91486.00 81 g 104 mm[Hg] 70 mm[Hg] Ava Reyes MA [facility] 5 11:54:42 Date Recorded Respiratory rate Body weight Body height Body temperature Heart rate Body mass index (BMI) Systolic blood pressure Diastolic blood pressure Provider Name and Address Organization Details Last Updated DateTime 5 20 /min 99945.3 0729 g 161.29 cm 98.4 [degF] 80 /min 20.4 kg/m2 104 mm[Hg] 68 mm[Hg] December LAURIE Peterson [facility] 5 14:38:34 Date Recorded Respiratory rate Body weight Body height Body temperature Heart rate Body mass index (BMI) Systolic blood pressure Diastolic blood pressure Provider Name and Address Organization Details Last Updated DateTime 5 18 /min 74405.6 7677 g 161.29 cm 98 [degF] 74 /min 21.1 kg/m2 108 mm[Hg] 78 mm[Hg] December LAURIE Peterson [facility] 5 10:03:05 Social History Question Answer Notes LastModified by Organizat ion Details LastModified Time Tobacco Smoking Status Never Smoker Ava Reyes MA [facility] 02/27/2015 11:51:37 Do You Have An Advance Directive? No [email or web address] Information not available 02/27/2015 Is Blood Transfusion Acceptable In An Emergency? Yes Information not available 02/27/2015 What Is Your Level Of Caffeine Consumption? Occasional [email or web address] Information not available 02/27/2015 How Much Tobacco Do You Chew? None [email or web address] Information not available 02/27/2015 What Type Of Diet Are You Following? REGULAR [email or web address] Information not available 02/27/2015 Education 12 Information no t available 02/27/2015 Are There Any Guns Present In Your Home? No Information not available 06/25/2015 Hard Of Hearing Or Deaf In One Or Both Ears? No Information not available 06/25/2015 Legally Blind In One Or Both Eyes? No Information not available 06/25/2015 Live Alone Or With Others? With Others [email or web address] Information not available 02/27/2015 Preferred Name Dede [email or web address] Informatio n not available 02/27/2015 Sex Assigned At Female Information not available 02/27/2015 In School? No [email or web address] Information no t available 02/27/2015 Highest Grade Completed 12 Some College [email or web address] Information not available 02/27/2015 Lives With Parents [email or web address] Information no t available 02/27/2015 Interests/Hobbie s Explore Outdoors, Hiking, Music Festivals Etc [email or web address] Information not available 02/27/2015 Life Going Well In General Yes Information not available 02/27/2015 Needs Help With Counseling/issue s/referrals No [email or web address] Information not available 02/27/2015 # Alcohol Drinks Per Week 4 [email or web address] Information not available 02/27/2015 Sexual Attraction Opposite Sex [email or web address] Information not available 02/27/2015 Have You Ever Had Sex? Yes [email or web address] Information not available 02/27/2015 # Sex Partners Had 10 Information not available 02/27/2015 Teen No [email or web address] Information no t available 02/27/2015 Parents Aware Of Sexual Activity? No [email or web address] Information not available 02/27/2015 Parents Aware Coming To Clinic? Yes [email or web address] Information not available 02/27/2015 Can Talk To Parents About Personal Things In Life? Yes [email or web address] Information not available 02/27/2015 Have You Ever Had A Pap Smear? No [email or web address] Information not available 02/27/2015 Current Gender Identity Female [email or web address] Information not available 02/27/2015 Marital Status Single [email or web address] Informatio n not available 02/27/2015 How Many Children Do You Have? 0 [email or web address] Information not available 02/27/2015 Performs Monthly Self-breast Exam? No [email or web address] Information not available 02/27/2015 Do You Use Protection During Sex? Usually [email or web address] Information not available 02/27/2015 What Is Your Relationship Status? Single Information not available 02/27/2015 Seat Belts Used Routinely Yes [email or web address] Information not available 02/27/2015 Are You Sexually Active? Yes [email or web address] Information not available 02/27/2015 Smoke Alarm In Home Yes Information not available 06/25/2015 How Much Tobacco Do You Smoke? No Information not available 06/25/2015 General Stress Level Low [email or web address] Information not available 02/27/2015 Do You Use Sunscreen Routinely? Yes [email or web address] Information not available 02/27/2015 Sex: Unknown Functional Status Question Answer Note LastModified by Organizat ion Details LastModified Time What is your level of alcohol consumption? Occasional [email or web address] Information not available 02/27/2015 Are you currently employed? Yes [email or web address] Information not available 02/27/2015 Are you able to care for yourself? 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 Occasional [email or web address] Information not available 02/27/2015 Mental Status None [...] Disorder N Colon Polyps N Heart Attack (IN) N Diabetes N Cardiomyopathy N Blood Transfusions [...] Recorded Time Tdap 6 completed Not Available [facility] 10/08/2019 02:30:20 COVID-19, mRNA, LNP-S, PF, 30 mcg/0.3 mL dose 1 completed Fernanda [place] [facility] 03/27/2021 11:21:52 COVID-19, mRNA, LNP-S, PF, 30 mcg/0.3 mL dose 1 completed [place] [facility] 03/27/2021 11:22:16 HPV, quadrivalent 1 completed Dixon Tirado null, [place] - [facility] 02/27/2015 12:20:28 Influenza, high-dose, trivalent, PF 5 completed Dixon Tirado [place], [place] [facility] 02/27/2015 12:21:10 Influenza, split virus, quadrivalent, preservative 5 completed Not Available [facility] 10/08/2019 02:45:27 Past Encounters Encounter ID Performer Location Encounter Start Date Encounter Closed Date Diagnosis/Indication Diagnosis SNOMED-CT Code Diagnosis ICD10 Code Diagnosis Note [id number] MD Kathleen Chavarria (INTERIOR DESIGNER) [address] [place] [phone] 02/27/2015 11:06:03 02/27/2015 12:27:18 Gynecologic examination [id number] [facility] [id number] MD Kathleen Holder (Adult Med) [address] [place] [phone] 06/25/2015 14:20:07 06/27/2015 14:52:43 Influenza vaccine needed 0155777915 106 Z28.3 General ex amination of patient 950736552 Z00.8 19 y/o WF who presents to this office as a new patient, her last provider was Dr. Coon (Pediatric ian_) Abdominal pain 86056186 R10.9 Family history of Crohn's. Possibilit ies include Cholelithi asis, PUD, Inflammato ry bowel disease and Irritable bowel syndrome. Discontinu e Ibuprofen which she only uses about four times a week. Acne 93441123 L70.9 Reported acne, She has been using OTC soaps [id number] MD Kathleen Holder (Adult Med) [address] [place] [phone] 07/19/2015 09:54:19 07/19/2015 13:00:41 Abdominal pain 69780038 R10.9 Family history of Crohn's. Her symptoms are now more random, labs suggest Inflammato ry bowel disease. Her US was normal, a GI evaluation is pending Impaired f asting glycemia 545448485 R73.01 [id number] MD Kathleen Holder (Adult Med) [address] [place] [phone] 11/15/2015 11:51:26 11/15/2015 13:03:25 Crohn's disease 75637067 K50.90 Impaired f asting glycemia 862376881 R73.01 Active or passive immunization 207695421 Z23 Health Concerns Section Related Observation LastModified by Organization Detai ls LastModified Time None Recorded Concern Status LastModified by Organization Details LastModified Time None Recorded Advance Directives Directive N: Payers Encounter Date Sequence Insurance Name Policy Number Policy Thompson Covered Member ID Thompson Member ID Guarantor Name 02/27/2015 1 [place] Dede Jackson [id number] Dede Jackson 06/25/2015 1 [facility] (MEDICAID HMO) [id number] 0003 Dede Jackson [id number] Dede Jackson 07/19/2015 1 [facility] (MEDICAID HMO) [id number] Dede Jackson [id number] Dede Jackson 11/15/2015 1 [facility] (MEDICAID HMO) [id number] 0003 Dede Jackson [id number] Dede Manuel OBGyn Episode No OBEpisode recorded.
[2025-03-01 20:05] VITALS: BP 124/73; PULSE 82; RESP 22; TEMP 36.4; O2SAT 100
--- NOTE | 2025-03-01 21:21 | ECG_ITS ---
Test Date: 2025-03-01 21:58:04 Measurements Intervals [place] Rate: 83 P: 67 SD: 130 QRS: 67 QRSD: 93 T: 46 QT: 425 QTc: 502 Interpretive Statements SINUS RHYTHM WITH SINUS ARRHYTHMIA BORDERLINE T WAVE ABNORMALITY- ANTERIOR LEADS BASELINE ARTIFACT- I, II, III, AVR, AVL, AVF, V4-V6 BORDERLINE ECG No previous ECG available for comparison Electronically Signed On 03-02-2025 05:49:44 CDT by Erik Beebe D.O.
[2025-03-01] MEDS: HALOPERIDOL LACTATE 5 MG/ML VIAL IM (21:23)
[2025-03-01] MEDS: ONDANSETRON INJ 4 MG/2 ML VIAL IV PUSH (21:43)
[2025-03-01 21:46] LABS: Basophils Absolute Auto 0.1 K/mm3 (0.0-0.1); Basophils Percent Auto 0.4 % (0.2-1.2); Eosinophils Percent Auto 0.1 % (0-4.4); Hematocrit 38.2 % (37.0-47.0); Hemoglobin 13.1 g/dL (12.0-15.0); Immature Granulocyte Absolute 0.04 K/mm3 (0.00-0.031); Immature Granulocyte Percent A 0.3 % (0-0.5); Lymphocytes Absolute Auto 1.48 K/mm3 (0.9-3.2); Lymphocytes Percent Auto 10.4 % (18.3-44.2); Mean Corpuscular HGB Conc 34.3 g/dl (32-36); Mean Corpuscular Hemoglobin 30.4 pg (26-34); Mean Corpuscular Volume 88.6 fl (80-100); Mean Platelet Volume 9.7 fl (7.4-10.4); Monocytes Absolute Auto 0.9 K/mm3 (0.1-0.6); Monocytes Percent Auto 6.3 % (2.6-8.5); Neutrophils Absolute Auto 11.8 K/mm3 (1.3-6.7); Neutrophils Percent Auto 82.5 % (45.5-73.1); Platelet Count Result 271 k/mm3 (150-375); Red Blood Count 4.31 M/mm3 (4.2-5.4); Red Cell Distribution Width 12.3 % (11.5-14.5); White Blood Count 14.3 K/mm3 (4.5-10.0)
[2025-03-01] MEDS: FAMOTIDINE 20 MG/2 ML VIAL IV PUSH (21:46)
[2025-03-01] MEDS: SODIUM CHLORIDE 0.9% IV 2,000 ML 999 ML IV CONT (21:47)
[2025-03-01 22:01] LABS: Alanine Aminotransferase 26 U/L (6-35); Albumin Level 4.9 g/dL (3.5-5.1); Alkaline Phosphatase 77 U/L (38-126); Anion Gap 12 mmol/L (4-12); Aspartate Amino Transferase 39 U/L (14-36); Bilirubin,Total 0.6 mg/dL (0.2-1.3); Blood Urea Nitrogen 14 mg/dL (7-17); Calcium 9.5 mg/dL (8.4-10.2); Carbon Dioxide 18 mmol/L (22-30); Chloride 108 mmol/L (98-107); Estimated CRCL calculation 71 ml/min; Estimated Glomerular Filt Rate > 60; Ethanol < 10 mg/dL (<10); Glucose 132 mg/dL (65-110); Lactic Acid Reflex 2.3 mmol/L (0.7-2.0); Lipase 66 U/L (23-300); Potassium 3.5 mmol/L (3.4-5.0); Sodium 138 mmol/L (137-145); Total Protein 7.8 g/dL (6.3-8.2)
[2025-03-01 22:27] LABS: BEDSIDEPREGUCG Negative (Negative)
[2025-03-01] MEDS: PROCHLORPERAZINE EDISYLATE 10 MG/2 ML VIAL IM (22:44)
[2025-03-01] MEDS: diphenhydrAMINE HCl INJ 50 MG/ML VIAL 25 MG IV PUSH (22:45)
--- NOTE | 2025-03-01 22:59 | ED_ITS ---
HPI - General Adult General Chief complaint: Abdominal Pain Stated complaint: abd pain with chrons disease Time Seen by Provider: 03/01/25 21:17 History of Present Illness HPI narrative: This is a 29-year-old female with history of Crohn's disease and daily marijuana use presenting for abdominal pain nausea and vomiting. Symptoms started earlier today. The pain is located all over her abdomen. She cannot describe it. She is rolling back and forth on the bed and cannot get comfortable. Her fiance is at bedside and says this has happened multiple times in the past requiring ER visits. It is usually attributed to her Crohn's disease. Patient tried hot showers which did not help. She also took some Ativan at home which did not help. Patient uses a large amount of marijuana on a daily basis. Related Data Home Medications ?Medication ?Instructions ?Recorded ?Confirmed ?Last Taken ?Type hyoscyamine sulfate 0.125 mg tablet 0.125 mg PO PRN abd pain 01/20/25 01/23/25 Unknown History Allergies Allergy/AdvReac Type Severity Reaction Status Date / Time Sulfa (Sulfonamide Allergy Mild hives Verified 03/01/25 19:48 Antibiotics) ON LICENSE OF [facility] Past Medical History Medical History Abdominal mass Chronic nausea Abdominal pain Establishing care with new doctor, encounter for Pancreatitis Anxiety and depression Family History Family History Father Alcoholism Asthma Depression Mother Hypertension Thyroid disorder Social History Social History Social History: Engaged Smoking status: Never smoker Tobacco type: e-cigarettes/vaping Additional smoking assessment comments: Pt has been vaping for 3 years Alcohol intake: former Alcohol use details: Pt quit drinking alcohol 11/22/2023 Substance use: current Substance use type: marijuana Other substance usage details: daily Last use: Pt smokes marijuana daily. Do You Feel Safe in your Home?: Yes Lack of Transportation: No Lack of Food: Never True Current Housing: I Have Housing Concerned About Future Housing: No Difficulty Paying Gas/Electric Bills: No Difficulty Paying for Meds: No Currently Unemployed: YES Education: Don't Know Difficulty w/ Childcare or Family Care: No Living arrangements: with family Occupation/Education: unemployed Additional occupation/education comments: [employer] Gender identity (if verbalized by the patient): Female Sexual Orientation (if Verbalized by the Patient): Straight or Heterosexual Spiritual care concerns: No Exam 2 Narrative: APPEARANCE: Patient is rolling back and forth in the bed like she cannot get comfortable, she is moaning Head: atraumatic. EYES: EOMI, NOSE: Atraumatic NECK: Trachea midline RESPIRATORY: No increased rate of breathing CTAB CARDIOVASCULAR: RRR, no peripheral edema ABDOMINAL: Abdomen is soft nontender with no guarding or rebound no CVA tenderness MUSCULOSKELETAl: No obvious deformities NEURO: Alert. Moving 4/4 extremities SKIN:: Warm, dry. Normal color PSYCHIATRIC: Normal affect Course Vital Signs Vital signs: Vital Signs Temperature 97.6 F 03/01/25 20:05 Pulse Rate 82 03/01/25 20:05 Respiratory Rate 22 H 03/01/25 20:05 Blood Pressure 124/73 03/01/25 20:05 Pulse Oximetry 100 03/01/25 20:05 Oxygen Delivery Room Air 03/01/25 20:05 Temperature 97.6 F 03/01/25 20:05 Pulse Rate 78 03/01/25 23:49 Respiratory Rate 18 03/01/25 23:49 Blood Pressure 116/63 03/01/25 23:49 Pulse Oximetry 100 03/01/25 23:49 Oxygen Delivery Room Air 03/01/25 20:05 Medical Decision Making [facility] Narrative Medical decision making narrative: -Course: 29-year-old female history of Crohn's and heavy marijuana use presenting for abdominal pain and nausea and vomiting. Despite appearing very distressed her vital signs are normal with a blood pressure of 124/83 any pulse of 82. Her abdominal exam is soft, without guarding or rebound or any focal tenderness. She has had similar symptoms in the past, she has tried hot showers with no relief. Patient has a classic presentation of cannabinoid hyperemesis syndrome. Patient was treated with several antiemetics with significant improvement. CT was ordered to evaluate for complications from Crohn's disease or other causes of abdominal pain and was negative. She does have a right ovarian cyst and possibly slightly dilated fallopian tubes. Further ultrasound studies can be performed by her OBGYN as this is not related to her complaint today. White count elevated at 14 but no evidence of infection is likely stress response to her vomiting. On re-evaluation patient's symptoms have improved although she says they have not completely gone away. She is now tolerating p.o.. Patient will be discharged home. She is instructed to stop using marijuana. Follow up with her primary care physician and her OBGYN. -DDX includes but is not limited to: Cannabinoid hyperemesis, appendicitis, Crohn's complication, diverticulitis, gastroenteritis, anxiety -Co-morbidities complicating care: Crohn's disease, daily marijuana use, anxiety -Social determinants of health: History of alcohol abuse although now sober, heavy daily marijuana use Vital Signs Vital Signs: Vital Signs Temperature 97.6 F 03/01/25 20:05 Pulse Rate 82 03/01/25 20:05 Respiratory Rate 22 H 03/01/25 20:05 Blood Pressure 124/73 03/01/25 20:05 Pulse Oximetry 100 03/01/25 20:05 Oxygen Delivery Room Air 03/01/25 20:05 Temperature 97.6 F 03/01/25 20:05 Pulse Rate 78 03/01/25 23:49 Respiratory Rate 18 03/01/25 23:49 Blood Pressure 116/63 03/01/25 23:49 Pulse Oximetry 100 03/01/25 23:49 Oxygen Delivery Room Air 03/01/25 20:05 Lab Data 03/01/25 21:37 03/01/25 21:37 Labs: Lab Results 03/01/25 03/01/25 03/01/25 Range/Units 21:37 22:22 22:25 WBC 14.3 H (4.5-10.0) K/mm3 RBC 4.31 (4.2-5.4) M/mm3 Hgb 13.1 (12.0-15.0) g/dL Hct 38.2 (37.0-47.0) % MCV 88.6 (80-100) fl MCH 30.4 (26-34) pg MCHC 34.3 (32-36) g/dl RDW 12.3 (11.5-14.5) % Plt Count 271 (150-375) k/mm3 MPV 9.7 (7.4-10.4) fl Immature Gran % (Auto) 0.3 (0-0.5) % Neut % (Auto) 82.5 H (45.5-73.1) % Lymph % (Auto) 10.4 L (18.3-44.2) % [place] % (Auto) 6.3 (2.6-8.5) % Eos % (Auto) 0.1 (0-4.4) % Baso % (Auto) 0.4 (0.2-1.2) % Lymph # (Auto) 1.48 (0.9-3.2) K/mm3 [place] # (Auto) 0.9 H (0.1-0.6) K/mm3 Eos # (Auto) 0.0 (0-0.3) K/mm3 Baso # (Auto) 0.1 (0.0-0.1) K/mm3 Abs Immat Gran (auto) 0.04 H (0.00-0.031) K/mm3 Absolute Neuts (auto) 11.8 H (1.3-6.7) K/mm3 Absolute Nucleated RBC 0.000 (0.0-0.012) K/mm3 Nucleated RBC % 0.0 (0.0-0.2) % Sodium 138 (137-145) mmol/L Potassium 3.5 (3.4-5.0) mmol/L Chloride 108 H (98-107) mmol/L Carbon Dioxide 18 L (22-30) mmol/L Anion Gap 12 (4-12) mmol/L BUN 14 (7-17) mg/dL Creatinine 0.80 (0.7-1.0) mg/dL Estim Creat Clear Calc 71 ml/min Estimated GFR > 60 (59 - ) Glucose 132 H (65-110) mg/dL Lactic Acid 2.3 H (0.7-2.0) mmol/L Calcium 9.5 (8.4-10.2) mg/dL Total Bilirubin 0.6 (0.2-1.3) mg/dL AST 39 H (14-36) U/L ALT 26 (6-35) U/L Alkaline Phosphatase 77 (38-126) U/L Total Protein 7.8 (6.3-8.2) g/dL Albumin 4.9 (3.5-5.1) g/dL Lipase 66 (23-300) U/L POC Urine HCG, Qual Negative (Negative) Urine Opiates Screen Negative (Negative) Urine Methadone Screen Negative (Negative) Ur Barbiturates Screen Negative (Negative) Ur Phencyclidine Scrn Negative (Negative) Ur Amphetamine Screen Negative (Negative) U Benzodiazepines Scrn Negative (Negative) Urine Cocaine Screen Negative (Negative) U Cannabinoids Screen Positive A (Negative) Ethyl Alcohol < 10 (<10) mg/dL 03/01/25 Range/Units 23:59 WBC (4.5-10.0) K/mm3 RBC (4.2-5.4) M/mm3 Hgb (12.0-15.0) g/dL Hct (37.0-47.0) % MCV (80-100) fl MCH (26-34) pg MCHC (32-36) g/dl RDW (11.5-14.5) % Plt Count (150-375) k/mm3 MPV (7.4-10.4) fl Immature Gran % (Auto) (0-0.5) % Neut % (Auto) (45.5-73.1) % Lymph % (Auto) (18.3-44.2) % [place] % (Auto) (2.6-8.5) % Eos % (Auto) (0-4.4) % Baso % (Auto) (0.2-1.2) % Lymph # (Auto) (0.9-3.2) K/mm3 [place] # (Auto) (0.1-0.6) K/mm3 Eos # (Auto) (0-0.3) K/mm3 Baso # (Auto) (0.0-0.1) K/mm3 Abs Immat Gran (auto) (0.00-0.031) K/mm3 Absolute Neuts (auto) (1.3-6.7) K/mm3 Absolute Nucleated RBC (0.0-0.012) K/mm3 Nucleated RBC % (0.0-0.2) % Sodium (137-145) mmol/L Potassium (3.4-5.0) mmol/L Chloride (98-107) mmol/L Carbon Dioxide (22-30) mmol/L Anion Gap (4-12) mmol/L BUN (7-17) mg/dL Creatinine (0.7-1.0) mg/dL Estim Creat Clear Calc ml/min Estimated GFR (59 - ) Glucose (65-110) mg/dL Lactic Acid 1.2 (0.7-2.0) mmol/L Calcium (8.4-10.2) mg/dL Total Bilirubin (0.2-1.3) mg/dL AST (14-36) U/L ALT (6-35) U/L Alkaline Phosphatase (38-126) U/L Total Protein (6.3-8.2) g/dL Albumin (3.5-5.1) g/dL Lipase (23-300) U/L POC Urine HCG, Qual (Negative) Urine Opiates Screen (Negative) Urine Methadone Screen (Negative) Ur Barbiturates Screen (Negative) Ur Phencyclidine Scrn (Negative) Ur Amphetamine Screen (Negative) U Benzodiazepines Scrn (Negative) Urine Cocaine Screen (Negative) U Cannabinoids Screen (Negative) Ethyl Alcohol (<10) mg/dL Discharge Plan Discharge Clinical Impression: Cannabinoid hyperemesis syndrome Patient Disposition: Home Condition: Stable Instructions: Antibiotic Form, Cyclic Vomiting Syndrome (ED) Additional Instructions: You were seen in the emergency department for nausea and vomiting. This is likely a result of your marijuana use. Please talk with your primary care physician about alternative medications to marijuana. If you develop severe abdominal pain or intractable nausea vomiting you can return to ED at any time re-evaluation Patient Language: Mongolian Prescriptions: New ondansetron 4 mg tablet,disintegrating 4 mg PO Q8H PRN (Reason: nausea and vomiting) Qty: 30 0RF No Action paroxetine HCl 10 mg tablet 30 mg PO DAILY Qty: 270 0RF Stelara 90 mg/mL syringe 90 mg subcut .every 8 weeks Qty: 1 6RF ustekinumab 90 mg/mL subcutaneous syringe 90 mg/mL syringe 0RF budesonide 3 mg capsule,delayed,extend.release 3 mg PO DAILY Qty: 90 0RF Rx Instructions: Take 9 mg x 2 weeks, 6 mg x 2 weeks, and 3 mg x 2 weeks. ondansetron 4 mg tablet,disintegrating 4 - 8 mg PO Q8H PRN (Reason: nausea and vomiting) Qty: 60 1RF lorazepam 1 mg tablet 1 mg PO BID PRN (Reason: anxiety) Qty: 30 0RF hydroxyzine HCl 25 mg tablet 25 mg PO TID PRN (Reason: anxiety) Qty: 270 1RF hyoscyamine sulfate 0.125 mg tablet 0.125 mg PO PRN buspirone 7.5 mg tablet 15 mg PO TID Qty: 270 5RF Follow-up/Referrals: Abdelrahman Thompson MD [Primary Care Provider] -
[2025-03-01 23:25] LABS: Amphetamine Screen Urine Negative (Negative); Barbiturate Screen Urine Negative (Negative); Benzodiazepines Screen Urine Negative (Negative); Cannabinoid Screen Urine Positive (Negative); Cocaine Screen Urine Negative (Negative); Methadone Screen Urine Negative (Negative); Opiate Screen Urine Negative (Negative); Phencyclidine Screen Urine Negative (Negative)
[2025-03-01 23:43] LABS: Reflex Lactic Acid Yes or No Add Lactic
[2025-03-01 23:49] VITALS: BP 116/63; PULSE 78; RESP 18; O2SAT 100
[2025-03-01] MEDS: KETOROLAC 15 MG/ML VIAL (*BKC) IV PUSH (23:53)
[2025-03-02] MEDS: HALOPERIDOL LACTATE 5 MG/ML VIAL IM (00:08)
[2025-03-02 00:18] LABS: Lactic Acid 1.2 mmol/L (0.7-2.0)
== END 2025-03-02 01:57 | disposition home or self-care (01) ==
PROVIDERS: Emergency Provider Emergency Medicine; PCP Family Medicine
DX: R11.2 Nausea with vomiting, unspecified (principal); F12.90 Cannabis use, unspecified, uncomplicated; K50.90 Crohn's disease, unspecified, without complications
CPT/HCPCS: 36415; 74177; 80053; 80307; 81025; 82077; 83605; 83690; 85025; 93005; 96361; 96372; 96374; 96375; 99284; J0780; J1200; J1630; J1885; J2405; J7030; Q9967

== ENCOUNTER 2025-04-01 11:38 | Outpatient (CLI) | payer BC, SELFPAY ==
--- NOTE | ~2025-04-01 | US_ITS ---
Pelvic ultrasound. Clinical History: Ovarian cyst Technique: Realtime transabdominal and transvaginal scanning of the pelvis was performed. Color flow Doppler and Doppler spectral analysis were performed. Findings: The uterus is anteverted. The endometrial stripe has a thickness of 8 mm. No focal mass is identified. The right ovary measures 3.4 x 3.2 x 3.0 cm. Subcentimeter follicular right ovarian cysts are present . The left ovary measures 1.6 x 1.4 x 2.2 cm. No significant left ovarian or adnexal mass is seen. There is no evidence of free fluid in the cul de sac. Impression: No significant abnormality seen. Reviewed, dictated and finalized at location . Impression: No significant abnormality seen.
== END 2025-04-01 11:39 | disposition home or self-care (01) ==
LOC: MICIMG 11:39
PROVIDERS: PCP Family Medicine; Visit Provider Family Medicine
DX: N83.209 Unspecified ovarian cyst, unspecified side (principal)
CPT/HCPCS: 76830

== ENCOUNTER 2025-05-04 11:18 | Outpatient (CLI) | payer BC, SELFPAY ==
--- OUTSIDE RECORDS SUMMARY | 2025-05-04 11:37 | XMS_ITS | Patient Health Record ---
Author Organization [facility] As [employer] [facility] Address [address] [place] [address] Care Team Providers Care Reverberatory Skimmer Name Role Phone Krystle Tan Unavailable [phone] Reason For Referral No Information Medications Medication SIG (Take, Route, Frequency, Duration) Notes Start Date End Date Status chlordiazePOXIDE HCl 25 MG Oral Active Escitalopram Oxalate 10 MG Oral Active TRAMADOL 100 MG TABLET *Reorder from [employer] for eRx and Interaction Alerts* Active Plan Of Treatment No Information Insurance Providers Payer Name Payer Address Payer Phone Subscriber Number Group Number Insured Name Patient Relationship to Insured Coverage Start Date Coverage End Date [facility] [address] [place] [address] [id number] JADE CKOER Self - patient is the insured
[2025-05-04 11:42] LABS: Hematocrit 34.3 % (37.0-47.0); Hemoglobin 11.6 g/dL (12.0-15.0); Immature Granulocyte Percent A 0.1 % (0-0.5); Lymphocytes Absolute Auto 1.54 K/mm3 (0.9-3.2); Mean Corpuscular HGB Conc 33.8 g/dl (32-36); Mean Corpuscular Hemoglobin 30.4 pg (26-34); Mean Corpuscular Volume 90.0 fl (80-100); Nucleated Red Blood Cells Absolute Auto 0.000 K/mm3 (0.0-0.012); Nucleated Red Blood Cells Perc 0.0 % (0.0-0.2); Platelet Count Result 220 k/mm3 (150-375); Red Blood Count 3.81 M/mm3 (4.2-5.4); White Blood Count 7.0 K/mm3 (4.5-10.0)
[2025-05-04 12:01] LABS: Alanine Aminotransferase 19 U/L (6-35); Albumin Level 4.4 g/dL (3.5-5.1); Alkaline Phosphatase 99 U/L (38-126); Anion Gap 7 mmol/L (4-12); Aspartate Amino Transferase 35 U/L (14-36); Bilirubin,Total 0.3 mg/dL (0.2-1.3); Blood Urea Nitrogen 22 mg/dL (7-17); Calcium 9.0 mg/dL (8.4-10.2); Carbon Dioxide 28 mmol/L (22-30); Chloride 100 mmol/L (98-107); Estimated Glomerular Filt Rate > 60; Glucose 63 mg/dL (65-110); Potassium 4.4 mmol/L (3.4-5.0); Sodium 135 mmol/L (137-145); Total Protein 7.0 g/dL (6.3-8.2)
[2025-05-04 12:37] LABS: Thyroid Stimulating Hormone 1.640 uIU/mL (0.465-4.680)
== END 2025-05-04 11:19 | disposition home or self-care (01) ==
LOC: ANHLAB 11:19
PROVIDERS: PCP Family Medicine; Visit Provider Student in an Organized Health Care Education/Training Program
DX: F41.9 Anxiety disorder, unspecified (principal); R53.83 Other fatigue; F32.A Depression, unspecified; K50.119 Crohn's disease of large intestine with unspecified complications
CPT/HCPCS: 36415; 80053; 84443; 85025

== ENCOUNTER 2025-06-07 11:28 | Outpatient (CLI) | payer BC, SELFPAY ==
[2025-06-07 12:46] LABS: CRP < 0.5 mg/dL (<1.0); Iron 95 ug/dL (37-170); Percent Iron Saturation 39 % (20-50)
[2025-06-07 12:55] LABS: Ferritin 53.70 ng/mL (6.24-137)
[2025-06-07 13:26] LABS: Vitamin B12 883.0 pg/mL (239-931)
== END 2025-06-07 11:29 | disposition home or self-care (01) ==
PROVIDERS: PCP Student in an Organized Health Care Education/Training Program; Visit Provider Nurse Practitioner
DX: K50.819 Crohn's disease of both small and large intestine with unspecified complications (principal)
CPT/HCPCS: 36415; 82306; 82607; 82728; 82746; 83540; 83550; 85652; 86140

== ENCOUNTER 2025-06-23 01:24 | Day surgery (SDC) | payer BC, SELFPAY ==
[2025-06-13 11:21] VITALS: BMI 21.2
[2025-06-23 06:48] VITALS: BP 111/66; PULSE 86; RESP 16; TEMP 36.4; O2SAT 99
--- NOTE | 2025-06-23 06:54 | P.PNAN_ITS ---
Anes - Initial Pre Proc Eval Procedure: Operation Date: 06/23/25 07:30 Proposed Procedures p Esophagogastroduodenoscopy EGD - Donato Benjamin MD Date/Time: 06/23/25 06:54 Surgeon: Donato Benjamin MD Pre Op Diagnosis: nausea Pre Op Diagnosis: Nausea Patient Data Age: 29 Gender: F Height: 1.6 m Weight: 55.9 kg Last Vital Signs Temp 36.4 C 06/23/25 06:48 Pulse 86 06/23/25 06:48 Resp 16 06/23/25 06:48 BP 111/66 06/23/25 06:48 Pulse Ox 99 06/23/25 06:48 O2 Del Method Room Air 06/23/25 06:48 Allergies Allergy/AdvReac Type Severity Reaction Status Date / Time Sulfa (Sulfonamide Allergy Mild hives Verified 06/23/25 06:44 Antibiotics) Home Medications ?Medication ?Instructions ?Recorded ?Confirmed ?Type ustekinumab 90 mg/mL subcutaneous 90 mg subcut .every 8 weeks #1 mL 11/30/24 06/23/25 Rx syringe (Stelara) hyoscyamine sulfate 0.125 mg tablet 0.125 mg PO PRN ab d pain 01/20/25 06/23/25 History lorazepam 1 mg tablet 1 mg PO BID PRN anxiety #14 tabs 03/20/25 06/23/25 Rx paroxetine HCl 10 mg tablet 40 mg (4 x 10 mg) PO DAILY #360 05/03/25 06/23/25 Rx tabs buspirone 7.5 mg tablet 15 mg (2 x 7.5 mg) PO TID #2 70 tabs 06/07/25 06/23/25 Rx famotidine 40 mg tablet (Pepcid) 40 mg PO QHS #90 tabs 06/07/25 06/23/25 Rx ferrous sulfate 324 mg (65 mg 324 mg PO DAILY 2 months #60 tabs 06/07/25 06/23/25 Rx iron) tablet,delayed release ondansetron 4 mg disintegrating 4 - 8 mg (1 - 2 x 4 mg ) PO Q8H PRN 06/07/25 06/13/25 Rx tablet nausea and vomiting #60 tabs hydroxyzine HCl 25 mg tablet 25 mg PO TID PRN anxiety #270 tabs 06/15/25 06/23/25 Rx Patient hx anesthesia problems: none Family hx anesthesia problems: none Results Review: All pre-operative results and documents have been reviewed as part of the pre- operative evaluation. [facility] Past Medical History Medical History (Updated 06/07/25 @ 11:01 by Sarah Lugo FRONT DESK PERSON) Chronic nausea Abdominal mass Abdominal pain Establishing care with new doctor, encounter for Pancreatitis Anxiety and depression Family History Family History Father Alcoholism Asthma Depression Mother Hypertension Thyroid disorder Social History Social History Social History: Engaged Smoking status: Current every day smoker Tobacco type: e-cigarettes/vaping Additional smoking assessment comments: Pt has been vaping for 3 years Alcohol intake: former Alcohol use details: Pt quit drinking alcohol 11/22/2023 Substance use: former Substance use type: marijuana Do You Feel Safe in your Home?: Yes Lack of Transportation: No Lack of Food: Never True Current Housing: I Have Housing Concerned About Future Housing: No Difficulty Paying Gas/Electric Bills: No Difficulty Paying for Meds: No Currently Unemployed: YES Education: Don't Know Difficulty w/ Childcare or Family Care: No Living arrangements: with family Occupation/Education: unemployed Additional occupation/education comments: [employer] Gender identity (if verbalized by the patient): Female Sexual Orientation (if Verbalized by the Patient): Straight or Heterosexual Spiritual care concerns: No Anes - Eval Final PreProcedure Day of Procedure 06/23/25 06:54 Patient weight: normal Heart: regular rate and rhythm Lungs: clear to auscultation Airway: Mallampati scale class II Neurological: alert and oriented Last oral intake: >/= 8 hours ASA classification: II Emergent: yes Results Review: All pre-operative results and documents have been reviewed as part of the pre- operative evaluation. Informed Consent: The patient's anesthetic plan and its attendant risks and benefits were discussed with the patient/family/POA. Questions were solicited and answers provided to the satisfaction of the patient/family/POA.
[2025-06-23] MEDS: LACTATED RINGERS 1,000 ML 150 ML IV CONT (07:01)
--- NOTE | 2025-06-23 07:27 | WPDHPUPDATE1 ---
History and Physical Update Update Date/Time: 06/23/25 07:27 History and Physical has been reviewed, including an updated exam of the patient. There are NO changes in the patient's condition. Risks, benefits, and alternatives have been discussed and questions answered. Patient agrees to proceed with procedure.
--- NOTE | 2025-06-23 07:36 | S_PTH ---
PATIENT: Dede Jackson LOC: [facility]#:[id number] AGE/SX: 29/F ROOM: RE06/23/[address]: Donato Benjamin MD : 1995 BED: DIS: 06/23/2025 SPEC #: [id number] RECD: 06/23/25 07:56 STATUS: ADAMARIS RESherman #: [id number] KLAUDIA: 06/23/25 07:[address]: Donato Benjamin DEPT: [facility] Surgical RECD BY: Amelia Woody ENTERED: 06/23/25 07:57 SP TYPE: Surgical OTHR DR: Porsche Sanchez PA-C Tissues: A - Gastric Biopsy B - Small Bowel Bx Procedures: Hematoxylin and Eosin Stain Gross and Microscopic Level 4
[2025-06-23 07:38] VITALS: BP 93/47; PULSE 70; RESP 20; O2SAT 100
[2025-06-23 07:38] LABS: BEDSIDEPREGUCG Negative (Negative)
[2025-06-23 07:48] VITALS: BP 96/59; PULSE 69; RESP 18; O2SAT 100
[2025-06-23 07:58] VITALS: BP 94/58; PULSE 68; RESP 19; O2SAT 100
== END 2025-06-23 08:03 | disposition home or self-care (01) ==
PROVIDERS: PCP Student in an Organized Health Care Education/Training Program; Referring Provider Nurse Practitioner; Visit Provider Internal Medicine Gastroenterology
PROC: 0DJ08ZZ Inspection of Upper Intestinal Tract, Via Natural or Artificial Opening Endoscopic (ICD-10-PCS; CPT 43239; principal; 2025-06-23 07:30)
DX: R11.0 Nausea (principal); K31.84 Gastroparesis; K50.90 Crohn's disease, unspecified, without complications; F17.290 Nicotine dependence, other tobacco product, uncomplicated
CPT/HCPCS: 43239; 88305; J2003; J2704; J7120

== ENCOUNTER 2025-07-07 13:07 | Outpatient (CLI) | payer BC, SELFPAY ==
--- OUTSIDE RECORDS SUMMARY | 2025-07-07 13:16 | XMS_ITS | Patient Health Record ---
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 Name Role Phone Krystle Tan Unavailable [phone] Reason For Referral No Information Medications Medication SIG (Take, Route, Frequency, Duration) Notes Start Date End Date Status chlordiazePOXIDE HCl 25 MG Capsule Oral Active Escitalopram Oxalate 10 MG Tablet Oral Active TRAMADOL 100 MG TABLET *Reorder from [employer] for eRx and Interaction Alerts* Active Social History Social History Additional Details Category Social Info Options Details Migrated Social History Migrated Social History Tobacco Years: Smoker - current status unknown 11/26/2023 Plan Of Treatment No Information Insurance Providers Payer Name Payer Address Payer Phone Subscriber Number Group Number Insured Name Patient Relationship to Insured Coverage Start Date Coverage End Date [facility] [address] [place] [address] [id number] JADE COKER Self - patient is the insured
[2025-07-11 07:09] LABS: Calprotectin, Fecal 27 ug/g (0-120)
== END 2025-07-07 13:08 | disposition home or self-care (01) ==
LOC: ANHLAB 13:07
PROVIDERS: PCP Student in an Organized Health Care Education/Training Program; Visit Provider Nurse Practitioner
DX: K50.819 Crohn's disease of both small and large intestine with unspecified complications (principal)
CPT/HCPCS: 83993

== ENCOUNTER 2025-07-10 07:55 | Outpatient (CLI) | payer BC, SELFPAY ==
--- NOTE | ~2025-07-10 | NM_ITS ---
EXAM: NM gastric emptying study DATE: 07/10/2025 14:59 CDT INDICATION: Nausea TECHNIQUE: A gastric emptying study was performed using the methodology of Jose M DUARTE, et al. J Nucl Med 2007; 48:568-572. The patient was given a meal consisting of 2 scrambled eggs labeled with mCi Tc-99m sulfur colloid, 2 slices of toast, two packages of jam, and approximately 120 mL of water. Simultaneous anterior and posterior 1-min images of the abdomen were obtained with the patient supine at multiple time points over a total period of 4 hours. The geometric mean of anterior and posterior views was determined, and the percentage retention was calculated for each time point. COMPARISON: None. FINDINGS: Gastric retention of the radiotracer-labeled meal was 30%, 16%, and 2% at the 1-hour, 2-hour, and 4-hour time points, respectively. With this technique, apparent rapid gastric emptying is suggested by <30% gastric retention at 1 hour. Delayed gastric emptying is defined by gastric retention of >90% at 1 hour, >60% retention at 2 hours, or >10% retention at 4 hours. IMPRESSION: 1. Normal gastric emptying. Reviewed, dictated and finalized at location O. IMPRESSION: 1. Normal gastric emptying.
--- OUTSIDE RECORDS SUMMARY | 2025-07-10 08:02 | XMS_ITS | Patient Health Record ---
Author Organization [facility] As [employer] [facility] Address [address] [place] [address] Care Team Providers Care Crankshaft Balancer Name Role Phone Krystle aTn Unavailable [phone] Reason For Referral No Information Medications Medication SIG (Take, Route, Frequency, Duration) Notes Start Date End Date Status chlordiazePOXIDE HCl 25 MG Capsule Oral Active Escitalopram Oxalate 10 MG Tablet Oral Active TRAMADOL 100 MG TABLET *Reorder from [employer] for eRx and Interaction Alerts* Active Social History Social History Additional Details Category Social Info Options Details Migrated Social History Migrated Social History Tobacco Years: Smoker - current status unknown 11/26/2023 Plan Of Treatment No Information Insurance Providers Payer Name Payer Address Payer Phone Subscriber Number Group Number Insured Name Patient Relationship to Insured Coverage Start Date Coverage End Date [facility] [address] [place] [address] [id number] JADE COKER Self - patient is the insured
== END 2025-07-10 07:56 | disposition home or self-care (01) ==
PROVIDERS: PCP Student in an Organized Health Care Education/Training Program; Visit Provider Internal Medicine Gastroenterology
DX: R11.0 Nausea (principal)
CPT/HCPCS: 78264; A9541

== ENCOUNTER 2025-08-16 13:04 | Outpatient (CLI) | payer BC, SELFPAY ==
[2025-08-16 13:47] LABS: Hematocrit 34.3 % (37.0-47.0); Hemoglobin 11.6 g/dL (12.0-15.0); Mean Corpuscular HGB Conc 33.8 g/dl (32-36); Mean Corpuscular Hemoglobin 30.6 pg (26-34); Mean Corpuscular Volume 90.5 fl (80-100); Platelet Count Result 227 k/mm3 (150-375); Red Blood Count 3.79 M/mm3 (4.2-5.4); White Blood Count 6.0 K/mm3 (4.5-10.0)
== END 2025-08-16 13:05 | disposition home or self-care (01) ==
LOC: ANHLAB 13:06
PROVIDERS: PCP Student in an Organized Health Care Education/Training Program; Visit Provider Nurse Practitioner
DX: D64.9 Anemia, unspecified (principal)
CPT/HCPCS: 36415; 85027